=== PATIENT | male | born 1955 | race Caucasian/White ===

== ENCOUNTER 2024-11-08 06:15 | Day surgery (SDC) | payer MEDICARE, MEDICAID, SELFPAY ==
--- NOTE | 2024-11-07 07:00 | EKG_ITS ---
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
[2024-11-07 07:46] VITALS: BMI 25.5
[2024-11-07 09:52] LABS: Basophils % (Auto) 1 % (0-2.5); Eosinophils # (Auto) 0.1 Thou/mm3 (0.0-0.5); Eosinophils % (Auto) 2 % (0-10); Hematocrit 47.1 % (41.0-53.0); Hemoglobin 15.7 g/dL (13.5-16.0); Immature Granulocytes % (Auto) 1 % (0-0); Immature Granulocytes Auto 0.03 Thou/mm3 (0.00-0.00); Lymphocytes % (Auto) 17 % (10-50); Mean Corpuscular HGB Conc 33.3 g/dl (31.0-37.0); Mean Corpuscular Hemoglobin 30.5 pg (25.0-35.0); Mean Corpuscular Volume 92 fL (80-100); Monocytes # (Auto) 0.8 Thou/mm3 (0.0-0.8); Monocytes % (Auto) 13 % (0-12); Neutrophils # (Auto) 4.1 Thou/mm3 (1.8-7.7); Neutrophils % (Auto) 67 % (37-80); Nucleated Red Blood Cell % 0 /100 WBC (0); Platelet Count 181 Thou/mm3 (140-440); RDW Standard Deviation 41.5 fL (35.1-43.9); Red Blood Count 5.14 Miln/mm3 (4.50-5.90); White Blood Count 6.1 Thou/mm3 (3.8-10.6)
[2024-11-07 10:04] LABS: Alanine Aminotransferase 40 U/L (10-49); Albumin, Serum 4.9 gm/dL (3.4-4.8); Albumin/Globulin Ratio 1.9 (1.2-2.2); Alkaline Phosphatase 41 U/L (46-116); Anion Gap 8 (7-16); Aspartate Amino Transferase 32 U/L (0-34); BUN/Creatinine Ratio 14 Ratio (12-20); Bilirubin,Total 0.6 mg/dL (0.3-1.2); Blood Urea Nitrogen 24 mg/dL (9-23); Calcium 9.9 mg/dL (8.3-10.6); Calcium (Corrected) 9.9 mg/dL (8.5-10.1); Carbon Dioxide 25.7 mMol/L (20.0-31.0); Chloride 104 mMol/L (98-107); Creatinine (Component) 1.7 mg/dL (0.6-1.3); Estimated Creatinine Clearance 43.7 mL/min (>60); Globulin 2.6 gm/dL (2.3-3.5); Glucose 103 mg/dL (74-106); Osmolality,Calculated 279 (275-295); Potassium 4.5 mMol/L (3.4-5.1); Sodium 138 mMol/L (136-145); Total Protein 7.5 gm/dL (5.7-8.2); eGFR 43 See Note
[2024-11-08] VITALS (8 sets, daily range): BP systolic 112–139; BP diastolic 65–87; PULSE 77–108; RESP 13–20; TEMP 36.4–37.2; O2SAT 95–99; BMI 24.8
[2024-11-08] MEDS: RINGERS LACTATED 1000 ML 1,000 ML 20 ML IV (07:00)
[2024-11-08] MEDS: SCOPOLAMINE 1 MG TDSY TOP (07:56)
--- NOTE | 2024-11-08 09:48 | SUR.PHASEI ---
0948: Pt. AAOx4, vitals stable, breathing unlabored, no complaint of pain or nausea, dressing to right side CDI, no active bleed noted, report received from William BEARD and MD Segovia.
--- NOTE | 2024-11-08 10:01 | PD.SUROPNT ---
Date of Procedure 11/08/24 Pre Op Diagnosis Large right flank soft tissue mass Post Op Diagnosis Large subfascial soft tissue mass of right flank Procedure Excision of subfascial soft tissue mass from right flank Findings An approximately 10 cm diameter subfascial soft tissue mass of right flank Procedure Description Patient brought into the operating room in supine position. After administration of general endotracheal anesthesia, patient was placed in left lateral decubitus position. The right flank was prepped and draped in standard surgical manner. After administration of local anesthesia an approximately 12 cm elliptical incision was made and dissection was deepened into soft tissue. The mass was palpated and noted to be subfascial. The fascia was divided. The underlying mass was circumferentially dissected out surrounding tissue and underlying muscle. The mass was measuring to be approximately 10 cm diameter, lipomatous in nature. Once the mass was removed the area was copiously and thoroughly washed and irrigated and hemostasis achieved using electrocautery. The fascia reapproximated with interrupted sutures using 2-0 Vicryl. Subcutaneous tissue closed with interrupted sutures using 2-0 Vicryl and the incision was closed with 4-0 Monocryl in subcuticular fashion. Dermabond and sterile dressings applied. Patient tolerated procedure well. He was placed in supine position and extubated. He was breathing spontaneously and without difficulty and was transferred to postanesthesia care in stable condition. Instruments, needles and sponge counts were reported to be correct x 2. Anesthesia GETA and local Pathology / specimen Other (Right flank soft tissue mass) Estimated Blood Loss 5 Condition Stable Disposition PACU Surgeon Betty Crespo MD Surgical Staff Operation Date: 11/08/24 08:45 Case Staff Anesthesiologist: Eliseo Segovia
[2024-11-08] MEDS: HYDROcodone/APAP 5/325 TABLET 1 TAB PO (10:36)
--- NOTE | 2024-11-08 10:45 | SUR.PHASEII ---
1045: Pt. AAOx4, vitals stable, breathing unlabored, no complaint of pain or nausea, dressing to right flank CDI, no active bleed noted, Pt. tolerated sips of water well, pt. ambulated to wheelchair with steady gait and no assist, no complications. Gave discharge instructions to the pt. and his ride, both verbalized understanding and had no further questions. Pt. left with all personal belongings.
== END 2024-11-08 10:45 | disposition home or self-care (01) ==
PROVIDERS: Anesthesiology; PCP Family Medicine; Referring Provider Surgery; Visit Provider Surgery
PROC: (CPT 21933; principal; 2024-11-08 08:30)
DX: D17.1 Benign lipomatous neoplasm of skin and subcutaneous tissue of trunk (principal); Z01.810 Encounter for preprocedural cardiovascular examination
CPT/HCPCS: 21933; 36415; 80053; 85025; 93005; A4217; A4649; J0690; J1100; J1885; J2405; J2704; J3010; J3490; J7120; A9270

== ENCOUNTER → 2024-12-08 | Outpatient (CLI) | payer MEDICARE, MEDICAID, SELFPAY ==
[2024-12-08 12:37] LABS: Prostate Specific Antigen 9.19 ng/mL (0-4.00)
== END | disposition home or self-care (01) ==
LOC: COPL 11:08
PROVIDERS: PCP Physician Assistant; Referring Provider Surgery; Visit Provider Surgery
DX: N40.1 Benign prostatic hyperplasia with lower urinary tract symptoms (principal)
CPT/HCPCS: 36415; 84153

== ENCOUNTER → 2024-12-19 | Outpatient (CLI) | payer MEDICARE, MEDICAID, SELFPAY ==
--- NOTE | 2024-12-19 11:30 | XR_ITS ---
Examination: Testicular sonography complete TECHNIQUE: Grayscale sonographic images testes, assessment arterial inflow venous outflow Doppler spectral analysis carful analysis Exam date and time: December 19, 2024 1131 hours INDICATIONS: Palpable lump on clinical examination right testicle one month ago FINDINGS: Right testis 4.9 x 2.3 x 3.4 cm Epididymis 7.4 cm with septated right epididymal cyst 10.7 cm Arterial flow testicle. No testicular mass Left testis 4.4 x 2.2 x 2.5 cm Epididymis 12 mm Arterial flow testicle. No testicular mass Bilateral mild microlithiasis IMPRESSION: Large right epididymal cyst 10.7 x 4.5 x 6.7 cm Testicular microlithiasis
== END | disposition home or self-care (01) ==
PROVIDERS: PCP Physician Assistant; Referring Provider Surgery; Visit Provider Surgery
DX: N50.3 Cyst of epididymis (principal); N50.89 Other specified disorders of the male genital organs
CPT/HCPCS: 76870

== ENCOUNTER 2025-02-21 06:00 | Day surgery (SDC) | payer MEDICARE, MEDICAID, SELFPAY ==
[2025-02-20 06:54] VITALS: BMI 25.7
[2025-02-20 07:26] LABS: Collection Type, Urine Clean Catch; RBC,Urine 0 /hpf (0-3); Squamous Epithelial Cell,Urine 0 /hpf (0-5)
[2025-02-20 08:03] LABS: Basophils % (Auto) 1 % (0-2.5); Eosinophils # (Auto) 0.1 Thou/mm3 (0.0-0.5); Eosinophils % (Auto) 3 % (0-10); Hematocrit 40.9 % (41.0-53.0); Hemoglobin 13.9 g/dL (13.5-16.0); Immature Granulocytes % (Auto) 0 % (0-0); Immature Granulocytes Auto 0.01 Thou/mm3 (0.00-0.00); Lymphocytes % (Auto) 19 % (10-50); Mean Corpuscular Hemoglobin 30.5 pg (25.0-35.0); Mean Corpuscular Volume 90 fL (80-100); Monocytes # (Auto) 0.6 Thou/mm3 (0.0-0.8); Monocytes % (Auto) 12 % (0-12); Neutrophils # (Auto) 3.3 Thou/mm3 (1.8-7.7); Neutrophils % (Auto) 65 % (37-80); Nucleated Red Blood Cell % 0 /100 WBC (0); Platelet Count 175 Thou/mm3 (140-440); RDW Standard Deviation 43.2 fL (35.1-43.9); Red Blood Count 4.55 Miln/mm3 (4.50-5.90); White Blood Count 5.1 Thou/mm3 (3.8-10.6)
[2025-02-20 08:11] LABS: Bilirubin,Urine Negative (Negative); Blood,Urine Negative (Negative); Clarity,Urine Clear (Clear/Hazy); Color,Urine Lt-Yellow (Lt Yel-Yel); Glucose, Urine Negative (Negative); Ketones,Urine Negative (Negative); Leukocyte Esterase,Urine Negative (Negative); Nitrite,Urine Negative (Negative); PH,Urine 5.5 (5.0-7.0); Protein,Urine Negative (Neg - Trace); Specific Gravity,Urine 1.011 (1.001-1.035); Urobilinogen,Urine Negative mg/dL (0.0-1.0); WBC,Urine 1 /hpf (0-5)
[2025-02-20 08:11] LABS: Alanine Aminotransferase 19 U/L (10-49); Albumin, Serum 4.6 gm/dL (3.4-4.8); Albumin/Globulin Ratio 1.5 (1.2-2.2); Alkaline Phosphatase 49 U/L (46-116); Anion Gap 8 (7-16); Aspartate Amino Transferase 21 U/L (0-34); BUN/Creatinine Ratio 11 Ratio (12-20); Bilirubin,Total 0.7 mg/dL (0.3-1.2); Blood Urea Nitrogen 28 mg/dL (9-23); Calcium 9.3 mg/dL (8.3-10.6); Calcium (Corrected) 9.3 mg/dL (8.5-10.1); Carbon Dioxide 23.1 mMol/L (20.0-31.0); Chloride 111 mMol/L (98-107); Creatinine (Component) 2.5 mg/dL (0.6-1.3); Estimated Creatinine Clearance 28.9 mL/min (>60); Glucose 98 mg/dL (74-106); Osmolality,Calculated 288 (275-295); Sodium 142 mMol/L (136-145); Total Protein 7.6 gm/dL (5.7-8.2); eGFR 27 See Note
--- NOTE | 2025-02-20 13:45 | SUR.PREOP ---
Pt notified to come in at 0630 tomorrow for procedure.
--- NOTE | 2025-02-20 17:24 | ESHP_ITS ---
RE: MACARIO SANTIAGO : 1955 DATE OF ADMISSION: 02/21/2025 HISTORY OF PRESENT ILLNESS: The patient is an elderly gentleman with history of prostatism with elevated PSA of 9.19. The patient has some urinary urgency and prostatism. PAST SURGICAL HISTORY: Thyroid operation. He had umbilical hernia repair, eye operation and back operation. SOCIAL HISTORY: He has one child. PAST MEDICAL HISTORY: He has a history of high blood pressure. No history of diabetes mellitus. HOME MEDICATIONS: He takes lisinopril and statin medication and tamsulosin once a day. ALLERGIES: NONE KNOWN. PHYSICAL EXAMINATION: HEENT: Normal. NECK: Supple. LUNGS: Clear. CARDIOVASCULAR: Heart sounds are normal. ABDOMEN: Abdomen is soft without any organomegaly. No guarding. No rigidity. EXTREMITIES: Normal. GENITOURINARY: Phallus is normal. There is a right-sided scrotal spermatocele 2 to 3 inches in size. The patient's PSA has been up, 9.19. The patient has a right flank lipoma, 6 inches in size and left flank lipoma. He has aright scrotal swelling, 2 to 3 cm. RECTAL: Rectal examination reveals moderately enlarged smooth prostate. IMPRESSION: 1. Prostatism. 2. Prostatic obstruction. 3. Elevated PSA of 9.19. 4. 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 PLAN: Cystoscopy and transrectal prostatic ultrasound with ultrasound-guided prostatic needle biopsy. Planned procedure, risks and complications have been discussed with the patient. The patient has understood them and agreed to proceed. DT: 14:59:25 TT: 17:22:00 Ref: [id number] - TID: [id number]
[2025-02-21 06:45] VITALS: BP 156/93; PULSE 81; RESP 18; TEMP 37.4; O2SAT 99; BMI 25.9
[2025-02-21] MEDS: SODIUM CHLORIDE 0.9% 500 ML 500 ML 20 ML IV (06:53)
--- NOTE | 2025-02-21 08:05 | CHAP ---
Visited with patient and had prayer.
[2025-02-21 09:02] VITALS: BP 136/85; PULSE 76; RESP 16; TEMP 36.5; O2SAT 96
[2025-02-21 09:07] VITALS: BP 136/78; PULSE 73; RESP 20; O2SAT 98
[2025-02-21] MEDS: KETOROLAC INJ 30 MG/ML VIAL IVP (09:10)
[2025-02-21 09:12] VITALS: BP 131/79; PULSE 71; RESP 20; O2SAT 99
[2025-02-21 09:17] VITALS: BP 126/80; PULSE 65; RESP 20; O2SAT 96
[2025-02-21 09:32] VITALS: BP 136/82; PULSE 69; RESP 20; TEMP 37.2; O2SAT 99
--- NOTE | 2025-02-21 09:35 | ESOP_ITS ---
RE: MACARIO SANTIAGO : 1955 DATE OF OPERATION: 02/21/2025 PREOPERATIVE DIAGNOSES: Prostatism, prostatic obstruction, elevated prostate- specific antigen of 9.19, and right-sided scrotal hydrocele. POSTOPERATIVE DIAGNOSES: Prostatism, prostatic obstruction, elevated prostate- specific antigen of 9.19, and right-sided scrotal hydrocele. PROCEDURES PERFORMED: Cystoscopy, urethral dilatation, and transrectal prostatic ultrasound with ultrasound-guided prostatic needle biopsy. ANESTHESIA: Monitored anesthesia by Dr. Callaway. INDICATION: The patient is a 69-year-old gentleman who was referred to me with a history of prostatism, urgency, frequency, and elevated PSA of 9.19. The patient's rectal examination revealed a moderately large prostate without any hard nodules. The patient does have a right-sided scrotal hydrocele with some swelling below the right testicle, some sort of soft tissue in the right-sided scrotum with the hydrocele. The patient was now scheduled for cystoscopy and transrectal prostatic ultrasound with ultrasound-guided prostatic needle biopsy. Planned procedure, risks, and complications have been discussed with the patient. The patient understood them and agreed to proceed. DESCRIPTION OF PROCEDURE: After the patient was brought to the operating table under adequate monitored anesthesia by Dr. Callaway, he was placed in dorsal lithotomy position. Parts were prepped and draped in the usual fashion. Cystoscopy was then carried out in a standard fashion, which revealed adequate urethral meatus, normal-appearing urethra. Prostatic urethra revealed a moderately large prostate with bilobed prostate. Residual urine was about 800 mL, yellow and clear and was sent for culture and sensitivity examination. Bladder appeared to be hypotonic and flabby without any intravesical stones or tumors. Ureteral orifices were found to be normal in position and appearance. Scope was withdrawn. The urethra was dilated. The patient was then turned in left lateral position. Transrectal prostatic ultrasound was carried out. Biopsies were obtained from both lobes using ultrasound guidance. Prostatic volume was measured at 51.9 cubic cm. The patient tolerated the entire procedure well and left the room in good condition. PLAN: We will wait for the biopsy report. DT: 09:13:05 TT: 09:34:00 Ref: [id number] - TID: [id number]
--- NOTE | 2025-02-21 09:42 | SUR.PHASEII ---
0902: pt arrived to PACU via [facility] awake, alert, able to follow commands, breathing unlabored, report from Yoel BEARD and Dr Callaway 0915: pt able to tolerate oral fluids without difficulty swallowing or n/v 0942: pt awake, alert, able to follow commands, breathing unlabored, VS stable, pain improved and tolerable per pt, discharge instructions given with sister present, all questions answered, pt discharged via wheelchair with all belongings and copies of discharge paperwork.
== END 2025-02-21 09:42 | disposition home or self-care (01) ==
PROVIDERS: Anesthesiology; PCP Family Medicine; Referring Provider Surgery; Visit Provider Surgery
PROC: 0TJB8ZZ Inspection of Bladder, Via Natural or Artificial Opening Endoscopic (ICD-10-PCS; CPT 52000; principal; 2025-02-21 08:30)
DX: N40.1 Benign prostatic hyperplasia with lower urinary tract symptoms (principal); N43.3 Hydrocele, unspecified; R97.20 Elevated prostate specific antigen [PSA]; R35.0 Frequency of micturition
CPT/HCPCS: 52281; 55700; 36415; 80053; 81001; 85025; 87086; 96372; 99283; A4217; A4314; A4649; J0694; J1885; J2250; J2270; J2704; J3010; J7040

== ENCOUNTER 2025-02-21 16:50 | Emergency (ER) | payer MEDICARE, MEDICAID, SELFPAY ==
[2025-02-21 16:51] VITALS: BMI 25.0
[2025-02-21 17:12] VITALS: BP 133/76; PULSE 78; RESP 18; TEMP 37; O2SAT 98; BMI 25.4
--- NOTE | 2025-02-21 17:55 | PD.EDRME ---
Rapid Medical Screening Exam RME Arrival date/time: 02/21/25 16:50 Chief Complaint: General Adult/Misc Complain Time Seen by Provider: 02/21/25 17:27 Vital signs: Vital Signs Temperature 98.6 F 02/21/25 17:12 Pulse Rate 78 02/21/25 17:12 Respiratory Rate 18 02/21/25 17:12 Blood Pressure 133/76 H 02/21/25 17:12 Pulse Oximetry (%) 98 02/21/25 17:12 Oxygen Delivery Method Room Air 02/21/25 17:12 Vital signs reviewed by provider: Yes RME Narrative: 69-year-old male patient presents to the ED with a complaint of inability to urinate for the past 7-1/2 hours. This morning he underwent a prostate biopsy and was told if he had not urinated in 6 hours that he needed to be seen. Discussed case with Dr. Avila who would like the patient to have a Vora catheter inserted with a leg bag. I have greeted and performed a focused initial assessment of this patient. A comprehensive ED assessment and evaluation of the patient, analysis of all test results, and completion of the medical decision making process will be conducted by additional ED providers.
[2025-02-21] MEDS: KETOROLAC INJ 60 MG/2 ML VIAL 30 MG IM (21:16)
[2025-02-21] MEDS: MORPHINE SULF INJ 10 MG/ML VIAL 5 MG IM (21:16)
[2025-02-21 22:24] VITALS: BP 124/82; PULSE 78
--- NOTE | 2025-05-08 16:33 | PD.EDADULT ---
ED General RME/HPI General Chief complaint: General Adult/Misc Complain Stated complaint: HAS NOT VOIDED IN 7 HRS, PROSTATE BIOSPY THIS AM Time Seen by Provider: 02/21/25 17:40 Arrival date/time: 02/21/25 16:50 RME / HPI RME / HPI narrative: 69-year-old male patient presents to the ED with a complaint of inability to urinate for the past 7-1/2 hours. This morning he underwent a prostate biopsy and was told if he had not urinated in 6 hours that he needed to be seen. Discussed case with Dr. Avila who would like the patient to have a Vora catheter inserted with a leg bag. I have greeted and performed a focused initial assessment of this patient. A comprehensive ED assessment and evaluation of the patient, analysis of all test results, and completion of the medical decision making process will be conducted by additional ED providers. Related Data Home Medications ?Medication ?Instructions ?Recorded ?Confirmed tamsulosin 0.4 mg capsule (Flomax) 0.4 mg PO BID ##0 09/20/17 05/02/25 finasteride 5 mg tablet 5 mg PO DAILY 02/20/25 05/02/25 bethanechol chloride 25 mg tablet 25 mg PO TID 05/02/25 05/02/25 Previous Rx's ?Medication ?Instructions ?Recorded nitrofurantoin macrocrystal 100 mg 100 mg PO BID 5 days #10 caps 05/04/25 capsule Allergies Allergy/AdvReac Type Severity Reaction Status Date / Time No Known Allergies Allergy Verified 03/09/25 10:50 Review of Systems Review of Systems Systems Reviewed: All systems reviewed, normal except as documented Past Medical History Past Medical History NEUROLOGIC: Negative Neurological Disorders or Seizures CARDIAC: Positive Cardiac Disorders, Hypercholesterolemia, Hypertension and Hypotension; Negative Congestive Heart Failure RESPIRATORY: Negative Chronic Obstructive Pulmonary Disease (COPD) GASTROINTESTINAL: Negative Gastrointestinal Disorders or Hepatitis GENITOURINARY: Positive Genitourinary Disorders (left kidney cyst/mass) and Benign Prostatic Hyperplasia; Negative Renal Disease MUSCULOSKELETAL: Positive Musculoskeletal Disorders, Degenerative Disk Disease and Fractures ENT: Positive Cataracts and Retinal Detachment ENDOCRINE: Negative Endocrine Disorders, Diabetes Mellitus Type 1 or Diabetes Mellitus Type 2 HEMATOLOGIC: Negative Blood Disorders OTHER HISTORY: Positive Hospitalization, Shingles and Measles; Negative Autoimmune Disease, Blood Transfusions, Blood Transfusion Reaction, Anesthesia Reactions or Cancer Family History FAMILY HISTORY: Positive Family Surgery; Negative Family Psychiatric Problems, Family Respiratory Disorders, Family Cardiac Disorders, Family Gastrointestinal Problems, Family Cancer or Family Anesthesia Reaction Surgical History SURGICAL: Positive Thyroidectomy, Eye Surgery and Transurethral Resection Social History SMOKING STATUS: Never smoker ED Exam Narrative Physical exam: Alert and oriented, 69-year-old male, moderate acute pain distress secondary to urinary retention. Vital signs blood pressure 133/76, pulse 78, respirations 18 and nonlabored, temp 98.6, O2 sat 98% on room air. Lungs are clear, cardiovascular regular rate and rhythm without murmurs, abdomen is soft with moderate suprapubic and lower pelvic tenderness. Course Course Course Narrative: Vora inserted with immediate urinary output of 600 milliliters of red/brown urine. Patient feels significant relief with drainage of his bladder. Patient was given Toradol 30 mg IM and morphine 5 mg IM. Verbal order for urinalysis however urinalysis was not obtained prior to discharge. Quality Measures none Orders Category Date Time Status Vora to Leg Bag Routine Care 02/21/25 17:58 Ordered Ketorolac Inj [Toradol Inj] Med 02/21/25 21:05 Discontinued 30 mg IM X1 ONE Morphine Inj Med 02/21/25 21:05 Discontinued 5 mg IM X1 ONE Vital Signs Vital signs: Vital Signs Temperature 98.6 F 02/21/25 17:12 Pulse Rate 78 02/21/25 17:12 Respiratory Rate 18 02/21/25 17:12 Blood Pressure 133/76 H 02/21/25 17:12 Pulse Oximetry (%) 98 02/21/25 17:12 Oxygen Delivery Method Room Air 02/21/25 17:12 Discharge Plan Plan Patient Disposition: HOME (Self Care) Discharge Disposition comment: Stable and improved Prescriptions/Referrals Prescriptions/Med Rec: No Action tamsulosin [Flomax] 0.4 MG capsule,extended release 24hr 0.4 mg PO BID Qty: 0 finasteride 5 mg tablet 5 mg PO DAILY Patient Comments: TAKE 1 TABLET BY MOUTH DAILY bethanechol chloride 25 mg tablet 25 mg PO TID Patient Comments: Pt wants to stop taking nitrofurantoin macrocrystal 100 mg capsule 100 mg PO BID 5 Days Qty: 10 0RF Rx Instructions: must administer with a meal/food Referrals: Souleymane Gan PA-C [Primary Care Provider] - In 1 week Problem List Clinical Impression: Acute urinary retention Patient/Caregiver Discharge Instructions Other Activity Instructions:: Keep the catheter in place until you are seen by your urologist. Education Materials: ED Urinary Retention, Male Additional Instructions: Follow-up with your urologist or primary care physician in 24 to 48 hours. Return to the ED for any new or worsening symptoms. Print Language: Pashto Stand Alone Forms: Sridevi Award Info., Patient Portal Info Letter PA/MARIA T Supervising Physician PA/MARIA T Supervising Physician: Dr Avila [facility] Narrative [facility] hospital course: 69-year-old male patient presents to the ED with a complaint of inability to urinate for the past 7-1/2 hours. This morning he underwent a prostate biopsy and was told if he had not urinated in 6 hours that he needed to be seen. Discussed case with Dr. Avila who would like the patient to have a Vora catheter inserted with a leg bag. Alert and oriented, 69-year-old male, moderate acute pain distress secondary to urinary retention. Vital signs blood pressure 133/76, pulse 78, respirations 18 and nonlabored, temp 98.6, O2 sat 98% on room air. Lungs are clear, cardiovascular regular rate and rhythm without murmurs, abdomen is soft with moderate suprapubic and lower pelvic tenderness. Vora inserted with immediate urinary output of 600 milliliters of red/brown urine. Patient feels significant relief with drainage of his bladder. Patient was given Toradol 30 mg IM and morphine 5 mg IM. Verbal order for urinalysis however urinalysis was not obtained prior to discharge. Procedures done or offered: Vora catheter inserted with leg bag. Clinical Information Provided by patient Medical Records Reviewed [facility] Meds/Rx Considered, not Ordered None Labs/Rad/Tests considered, not Ordered None Chronic Illness/Social Conditions which may negatively complicate care or outcome(s)-explain: other (BPH) EKG EKG not done Lab Interpretation Labs: none Imaging Imaging interpretation: none Medication Administration(s) Medication Administration History Discontinued Medications Ketorolac Tromethamine (Ketorolac Inj 60 Mg/2 Ml Vial) 30 mg IM X1 ONE Stop: 02/21/25 21:06 Last Admin: 02/21/25 21:16 Dose: 30 mg Documented By: OA Morphine Sulfate (Morphine Sulf Inj 10 Mg/Ml Vial) 5 mg IM X1 ONE Stop: 02/21/25 21:06 Last Admin: 02/21/25 21:16 Dose: 5 mg Documented By: OA Toradol 30 mg IM and morphine 5 mg IM. Diagnosis Differential diagnosis: Acute urinary retention, UTI, pyelonephritis Most likely dx, and/or detailed dx discussion: Acute urinary retention Dispositon Disposition: Discharge Home Disposition comments: Stable and improved
== END 2025-02-21 22:24 | disposition home or self-care (01) ==
PROVIDERS: Emergency Provider Emergency Medicine; PCP Physician Assistant
DX: N40.1 Benign prostatic hyperplasia with lower urinary tract symptoms (principal); R33.8 Other retention of urine
CPT/HCPCS: 51702; 96372; 99283; J1885; J2270

== ENCOUNTER 2025-03-09 10:47 | Emergency (ER) | payer MEDICARE, MEDICAID, SELFPAY ==
[2025-03-09 10:48] VITALS: BMI 25.7
[2025-03-09 11:07] VITALS: BP 100/64; PULSE 95; RESP 19; TEMP 36.5; O2SAT 94
--- NOTE | 2025-03-09 11:17 | PD.EDRME ---
Rapid Medical Screening Exam RME Arrival date/time: 03/09/25 10:47 69-year-old male with a history of a prostate biopsy that was completed on 02/21/2025 presents to the emergency room with a chief complaint of urinary retention x 3 days, and abdominal pain. I have greeted and performed a focused initial assessment of this patient. A comprehensive ED assessment and evaluation of the patient, analysis of all test results, and completion of the medical decision making process will be conducted by additional ED providers. Chief Complaint: Urogenital-Male Vital signs: Vital Signs Temperature 97.7 F 03/09/25 11:07 Pulse Rate 95 03/09/25 11:07 Respiratory Rate 19 03/09/25 11:07 Blood Pressure 100/64 03/09/25 11:07 Pulse Oximetry (%) 94 L 03/09/25 11:07 Oxygen Delivery Method Room Air 03/09/25 11:07 Vital signs reviewed by provider: Yes
[2025-03-09] MEDS: HYDROcodone/APAP 5/325 TABLET 1 TAB PO (11:38)
[2025-03-09 11:55] LABS: Basophils % (Auto) 0 % (0-2.5); Eosinophils % (Auto) 0 % (0-10); Hematocrit 39.5 % (41.0-53.0); Hemoglobin 13.7 g/dL (13.5-16.0); Immature Granulocytes % (Auto) 1 % (0-0); Immature Granulocytes Auto 0.15 Thou/mm3 (0.00-0.00); Lymphocytes # (Auto) 0.7 Thou/mm3 (1.0-4.8); Lymphocytes % (Auto) 4 % (10-50); Mean Corpuscular HGB Conc 34.7 g/dl (31.0-37.0); Mean Corpuscular Hemoglobin 30.6 pg (25.0-35.0); Mean Corpuscular Volume 88 fL (80-100); Monocytes # (Auto) 2.3 Thou/mm3 (0.0-0.8); Monocytes % (Auto) 12 % (0-12); Neutrophils # (Auto) 15.4 Thou/mm3 (1.8-7.7); Neutrophils % (Auto) 83 % (37-80); Nucleated Red Blood Cell % 0 /100 WBC (0); Platelet Count 220 Thou/mm3 (140-440); RDW Standard Deviation 40.8 fL (35.1-43.9); Red Blood Count 4.47 Miln/mm3 (4.50-5.90); White Blood Count 18.5 Thou/mm3 (3.8-10.6)
[2025-03-09 12:09] LABS: Partial Thromboplastin Time 32.3 Seconds (22.0-36.0); Prothrombin Time 10.9 Seconds (9.0-12.2)
[2025-03-09 12:14] LABS: Alanine Aminotransferase 21 U/L (10-49); Albumin, Serum 4.7 gm/dL (3.4-4.8); Albumin/Globulin Ratio 1.5 (1.2-2.2); Alkaline Phosphatase 67 U/L (46-116); Anion Gap 12 (7-16); Aspartate Amino Transferase 36 U/L (0-34); BUN/Creatinine Ratio 21 Ratio (12-20); Bilirubin,Total 0.6 mg/dL (0.3-1.2); Blood Urea Nitrogen 55 mg/dL (9-23); Calcium 9.8 mg/dL (8.3-10.6); Calcium (Corrected) 9.8 mg/dL (8.5-10.1); Chloride 101 mMol/L (98-107); Creatinine (Component) 2.6 mg/dL (0.6-1.3); Estimated Creatinine Clearance 28.6 mL/min (>60); Globulin 3.1 gm/dL (2.3-3.5); Glucose 131 mg/dL (74-106); Osmolality,Calculated 287 (275-295); Potassium 4.9 mMol/L (3.4-5.1); Sodium 135 mMol/L (136-145); Total Protein 7.8 gm/dL (5.7-8.2); eGFR 26 See Note
[2025-03-09] MEDS: LIDOCAINE JELLY 2% (Urojet) 10 ML TUBE TOP (12:23)
--- NOTE | 2025-03-09 12:26 | PC.NURSE ---
NAVARRO CATH INSERTED. 1100ML OUTPUT NOTED. INFORMED PROVIDER. RELIEF OF PAIN AFTER BLADDER WAS DRAINED.
[2025-03-09 12:32] LABS: Collection Type, Urine Clean Catch
[2025-03-09 12:39] LABS: Bacteria,Urine 2+; Bilirubin,Urine Negative (Negative); Blood,Urine 3+ (Negative); Glucose, Urine Negative (Negative); Ketones,Urine Negative (Negative); Leukocyte Esterase,Urine Positive (Negative); Nitrite,Urine Negative (Negative); Protein,Urine 1+ (Neg - Trace); RBC,Urine 26 /hpf (0-3); Specific Gravity,Urine 1.017 (1.001-1.035); Squamous Epithelial Cell,Urine 2 /hpf (0-5); Urobilinogen,Urine Negative mg/dL (0.0-1.0); WBC,Urine 2486 /hpf (0-5)
[2025-03-09 12:40] LABS: Clarity,Urine Cloudy (Clear/Hazy); Color,Urine Lt Yellow (Lt Yel-Yel)
--- NOTE | 2025-03-09 15:01 | EDNOTE_ITS ---
ED Male Genitalurinary RME/HPI General Chief complaint: Urogenital-Male Stated complaint: URINARY RETENTION Time Seen by Provider: 03/09/25 12:36 Arrival date/time: 03/09/25 10:47 RME / HPI RME / HPI Narrative: 69-year-old male with a history of a prostate biopsy that was completed on 02/21/2025 presents to the emergency room with a chief complaint of urinary retention x 3 days, and abdominal pain. Patient denies any fever. Denies any other complaints. Patient Vora catheter was removed last Thursday by his urologist. Related Data Home Medications ?Medication ?Instructions ?Recorded ?Confirmed tamsulosin 0.4 mg capsule (Flomax) 0.4 mg PO QDAY ##0 09/20/17 02/20/25 lisinopril 10 mg tablet 10 mg PO QDAY 02/14/2102/20 ciprofloxacin HCl 500 mg tablet 500 mg PO BID 02/20/25 02/20/25 (Cipro) finasteride 5 mg tablet 5 mg PO DAILY 02/20/2502/20 Previous Rx's ?Medication ?Instructions ?Recorded cefuroxime axetil 500 mg tablet 500 mg PO BID #14 tabs 03/09/25 Allergies Allergy/AdvReac Type Severity Reaction Status Date / Time No Known Allergies Allergy Verified 03/09/25 10:50 Review of Systems Review of Systems Narrative Review of Systems: Review of system reviewed and within normal limits except mentioned in HPI ED Exam Narrative Physical exam: VITAL SIGNS: Reviewed. GENERAL APPEARANCE: Alert and interactive, follows commands, no acute distress, HEAD AND FACE: Non-traumatic. ENT: PERRL, pink conjunctivitis, eyelid no trauma, Mucous membrane moist. NECK: Supple, nontender, no nuchal rigidity. CHEST: No tenderness, no crepitus, no paradoxical movement, no retractions. LUNGS: Clear, well ventilated, symmetric, no rales, no wheezing, no ronchi, no stridor, good breath sounds bilaterally. HEART: Regular rate, regular rhythm, no murmur, no gallops. ABDOMEN: Soft, positive bowel sounds, nondistended, no guarding, nontender, no rebound, no masses, RECTAL: Deferred. GENITAL: Deferred. NEUROLOGICAL: Gross motor function intact sensory function intact, Appropriate for age. MUSCULOSKELETAL: low back nontender, full range of motion. EXTREMITIES: Nontender, full range of motion. SKIN: Color pink, dry, no rash, no lacerations, no abrasions, no contusions. LYMPHATICS: Deferred. Course Quality Measures none Orders Category Date Time Status Vora [Urinary Catheter] QS Care 03/09/25 11:16 Active CBC Stat Lab 03/09/25 11:28 Completed CMP [Comprehensive Metabolic Panel] Stat Lab 03/09/25 11:28 Completed PT [Prothrombin Time with INR] Stat Lab 03/09/25 11:28 Completed PTT [Partial Thromboplastin Time] Stat Lab 03/09/25 11:28 Completed UA [Urinalysis] Stat Lab 03/09/25 12:26 Completed Urine Culture Stat Lab 03/09/25 12:26 Received HYDROcodone*/APAP 5/325 [[place] 5/325] Med 03/09/25 11:16 Discontinued 1 tab PO X1 ONE Lidocaine Jelly 2% Urojet [Xylocaine Jelly 2% Urojet] Med 03/09/25 11:16 Discontinued See Dose Instructions TOP X1 ONE cefTRIAXone [Rocephin] 1,000 mg Med 03/09/25 14:50 Discontinued Lidocaine 1% 20 ml [Xylocaine 1% 20 ML] 2.1 ml IM X1 Vital Signs Vital signs: Vital Signs Temperature 97.7 F 03/09/25 11:07 Pulse Rate 95 03/09/25 11:07 Respiratory Rate 19 03/09/25 11:07 Blood Pressure 100/64 03/09/25 11:07 Pulse Oximetry (%) 94 L 03/09/25 11:07 Oxygen Delivery Method Room Air 03/09/25 11:07 Urogenital - Male MDM Narrative MDM Narrative:: 69-year-old male with a history of a prostate biopsy that was completed on 02/21/2025 presents to the emergency room with a chief complaint of urinary retention x 3 days, and abdominal pain. Patient denies any fever. Denies any other complaints. Patient Vora catheter was removed last Thursday by his urologist. Patient's laboratories are significant for UTI. Patient's creatinine today was noted to be 2.6 BUN of 55. Patient creatinine was also 2.6 about 2 weeks ago. Vora catheter was inserted, draining more than 500 cc of clear urine. Patient was advised to drink a lot of fluids and asked for follow-up with PCP to repeat the creatinine in 1 week. Patient was given ceftriaxone IM Patient data External records reviewed:: None Clinical information provided by:: patient and family Social determinants that could affect healthcare access:: none Patient has the following chronic illnesses:: BPH How is presenting disease/condition affected by chronic disease/condition?: exacerbated by Evaluation data The following diagnostics were reviewed and interpreted by me:: lab results Lab and/or radiology exams considered but not ordered:: None Interpretation Summary: See results MDM Medications / Prescriptions Medications or Prescriptions considered but not ordered:: None Medication administrations:: Medication Administration History Discontinued Medications Hydrocodone Bitart/Acetaminophen (Hydrocodone/Apap 5/325 Tablet) 1 tab PO X1 ONE Stop: 03/09/25 11:17 Last Admin: 03/09/25 11:38 Dose: 1 tab Documented By: DO Ceftriaxone Sodium 1,000 mg/ (Lidocaine HCl 2.1 ml) 0 mg IM X1 ONE Stop: 03/09/25 14:51 Lidocaine HCl (Lidocaine Jelly 2% (Urojet) 10 Ml Tube) 0 ml TOP X1 ONE Stop: 03/09/25 11:17 Last Admin: 03/09/25 12:23 Dose: 10 ml Documented By: DO Comments: UNABLE TO SCAN Ceftriaxone IM [place] Consultations Consultation(s) initiated? (list below): No Diagnosis Urogenital Male Differential Diagnosis: urinary tract infection, prostatitis and acute retention of urine Most likely diagnosis given after review of the tests above:: UTI, acute urinary retention Admission Indicated Admission indicated?: not indicated Admission Request Was there a request for admission?: No Disposition Plan Disposition Plan: Discharge Discharge Attestation Discharge Attestation: The patient and all family members were given an opportunity to ask questions and understood the discharge instructions. Discharge instructions specifically effects, indications for sooner follow up or return to the emergency department, and the expected course of current diagnosis. Patient condition: Stable Discharge Plan Plan Patient Disposition: HOME (Self Care) Discharge Disposition comment: Stable Prescriptions/Referrals Prescriptions/Med Rec: New cefuroxime axetil 500 mg tablet 500 mg PO BID Qty: 14 0RF No Action lisinopril 10 mg tablet 10 mg PO QDAY tamsulosin [Flomax] 0.4 MG capsule,extended release 24hr 0.4 mg PO QDAY Qty: 0 finasteride 5 mg tablet 5 mg PO DAILY Patient Comments: TAKE 1 TABLET BY MOUTH DAILY ciprofloxacin HCl [Cipro] 500 mg tablet 500 mg PO BID Referrals: Maverick Negro MD [Primary Care Provider] - In 1 week Problem List Clinical Impression: Acute on chronic urinary retention, Urinary tract infection, CKD (chronic kidney disease) Patient/Caregiver Discharge Instructions Discharge Activity: activity as tolerated Education Materials: ED Vora Catheter, Care Additional Instructions: Thank you for the opportunity for serving you today. You are stable for discharged . You are advised to: Follow-up with your PCP in 1 to 2 days Return to ED for worsening of symptoms Increase oral fluids Take medication as prescribed Please ask your PCP to refer you to a tempering oven operator in 1 to 2 days Print Language: Lithuanian Stand Alone Forms: Sridevi Award Info., Patient Portal Info Letter PA/GASSER MACHINE OPERATOR Supervising Physician ARINA/MARIA T Supervising Physician: Dr combs
[2025-03-09] MEDS: cefTRIAXone 1,000 MG, LIDOCAINE 1% 20 ML 2.1 ML IM (15:07)
== END 2025-03-09 15:22 | disposition home or self-care (01) ==
PROVIDERS: Nurse Practitioner Family; Emergency Provider Emergency Medicine; PCP Surgery
DX: N40.1 Benign prostatic hyperplasia with lower urinary tract symptoms (principal); R33.8 Other retention of urine; N39.0 Urinary tract infection, site not specified; N18.9 Chronic kidney disease, unspecified
CPT/HCPCS: 51702; 36415; 80053; 81001; 85025; 85610; 85730; 87077; 87086; 87186; 96372; 99283; J0696; J3490; A9270

== ENCOUNTER 2025-03-11 12:07 | Inpatient (IN) | payer MEDICARE, MEDICAID, SELFPAY ==
[2025-03-11 12:17] VITALS: BP 124/66; PULSE 84; RESP 17; TEMP 36.8; O2SAT 95; BMI 25.7
--- NOTE | 2025-03-11 12:29 | PD.EDMALE ---
ED Male Genitalurinary RME/HPI General Chief complaint: Urogenital-Male Stated complaint: URINE RESISTANT TO ORAL ABX Time Seen by Provider: 03/11/25 12:23 Arrival date/time: 03/11/25 12:07 Limitations: no limitations RME / HPI RME / HPI Narrative: 69 year old male who underwent cystoscopy, urethral dilatation, and ultrasound-guided prostatic biopsy on 02/21/[address] Vazquez returns to the ED for antibiotics. Patient was evaluated here 2 days ago for urinary retention and had a alvarado catheter placed, draining 500cc of urine. Patient was given an injection of Ceftriaxone here and sent home with Cefuroxime. Today I reviewed patients urine culture sensitivities which grew pseudonomas and is resistant to all oral forms. Patient was called and asked to return for admission. While in the ED denies any systemic symptoms, no fevers, no chills, no abdominal pain. Related Data Home Medications ?Medication ?Instructions ?Recorded ?Confirmed tamsulosin 0.4 mg capsule (Flomax) 0.4 mg PO QDAY ##0 09/20/17 02/20/25 lisinopril 10 mg tablet 10 mg PO QDAY 02/14/21 02/20/25 ciprofloxacin HCl 500 mg tablet 500 mg PO BID 02/20/25 02/20/25 (Cipro) finasteride 5 mg tablet 5 mg PO DAILY 02/20/25 02/20/25 Previous Rx's ?Medication ?Instructions ?Recorded cefuroxime axetil 500 mg tablet 500 mg PO BID #14 tabs 03/09/25 Allergies Allergy/AdvReac Type Severity Reaction Status Date / Time No Known Allergies Allergy Verified 03/09/25 10:50 Review of Systems Review of Systems Systems Reviewed: All systems reviewed, normal except as documented Past Medical History Past Medical History CARDIAC: Positive Cardiac Disorders, Hypercholesterolemia (Diet control pt's chooice) and Hypertension GENITOURINARY: Positive Genitourinary Disorders and Benign Prostatic Hyperplasia MUSCULOSKELETAL: Positive Musculoskeletal Disorders, Degenerative Disk Disease and Fractures (left orbital) ENT: Positive Cataracts (Left) and Retinal Detachment (left eye) OTHER HISTORY: Positive Hospitalization (back surgery) and Measles Family History FAMILY HISTORY: Positive Family Surgery Surgical History SURGICAL: Positive Thyroidectomy (lobectomy) and Eye Surgery (left retina) Social History SMOKING STATUS: Never smoker ED Exam General Limitations: Present no limitations General appearance: Present alert and in no apparent distress Head Head exam: Present atraumatic, normocephalic and normal inspection Eye Eye exam: Present normal appearance, PERRL and EOMI ENT ENT exam: Present normal exam, normal oropharynx and mucous membranes moist Neck Neck exam: Present normal inspection, full ROM and trachea midline Chest Chest inspection: Present normal inspection and symmetric chest wall rise Respiratory Respiratory exam: Present normal lung sounds bilaterally Cardiovascular Cardiovascular exam: Present regular rate, normal rhythm and normal heart sounds Abdominal Exam Abdominal exam: Present soft and normal bowel sounds exam: Present other (Alvarado catheter in place ) Extremities Exam Extremities exam: Present normal inspection and full ROM Back Exam Back exam: Present normal inspection and full ROM Neurological Exam Neurological exam: Present alert, oriented X3 and CN II-XII intact Psychiatric Psychiatric exam: Present normal affect and normal mood Skin Skin exam: Present warm, dry, intact and normal color Course Quality Measures none Orders Category Date Time Status Insert IV NOW Care 03/11/25 12:23 Active BMP [Basic Metabolic Panel] Stat Lab 03/11/25 12:36 Completed CBC Stat Lab 03/11/25 12:36 Completed Vital Signs Vital signs: Vital Signs Temperature 98.2 F 03/11/25 12:17 Pulse Rate 84 03/11/25 12:17 Respiratory Rate 17 03/11/25 12:17 Blood Pressure 124/66 03/11/25 12:17 Pulse Oximetry (%) 95 03/11/25 12:17 Oxygen Delivery Method Room Air 03/11/25 12:17 Pulse ox is 95% on room air which is adequate. Urogenital - Male MDM Narrative MDM Narrative:: Gisela Burger am scribing for and in the presence of Dr. Barahona. Patient data External records reviewed:: [facility] previous records (I reviewed ED visit on 03/09/2025. I reviewed urine cultures from 03/09/2025 which grew pseudomonas. ) Clinical information provided by:: patient Social determinants that could affect healthcare access:: none Patient has the following chronic illnesses:: underwent cystoscopy, urethral dilatation, and ultrasound-guided prostatic biopsy on 02/21/[address] Vazquez How is presenting disease/condition affected by chronic disease/condition?: exacerbated by Evaluation data The following diagnostics were reviewed and interpreted by me:: lab results Lab and/or radiology exams considered but not ordered:: None Interpretation Summary: I reviewed urine culture from visit on 03/09/2025 which grew pseudomonas aeruginosa Medications / Prescriptions Medications or Prescriptions considered but not ordered:: None Medication administrations:: Medication Administration History Acetaminophen (Acetaminophen 325 Mg Tablet) 650 mg PO Q6H PRN PRN Reason: pain(1-3) and Fever >100.4 Stop: 04/10/25 12:52 Hydrocodone Bitart/Acetaminophen (Hydrocodone/Apap 5/325 Tablet) 1 tab PO Q4HR PRN PRN Reason: PAIN SCALE 4-10(Mod-Sev Stop: 03/16/25 12:52 Enoxaparin Sodium (Enoxaparin Sod Inj 40 Mg/0.4 Ml Syringe) 40 mg SC QDAY COUNT INCLUDES THE [facility] Stop: 03/26/25 08:59 Finasteride (Finasteride 5 Mg Tablet) 5 mg PO QDAY COUNT INCLUDES THE [facility] Stop: 04/11/25 08:59 Cefepime HCl 1 gm/ Sodium (Chloride) 50 mls @ 100 mls/hr IV Q12HR COUNT INCLUDES THE [facility] Stop: 03/18/25 12:57 Ondansetron HCl (Ondansetron Inj 2 Mg/Ml Inj 2 Ml) 4 mg IV Q6H PRN; Protocol PRN Reason: NAUSEA OR VOMITING Stop: 04/10/25 12:52 Tamsulosin HCl (Tamsulosin Hcl 0.4 Mg Capsule) 0.4 mg PO QDAY COUNT INCLUDES THE [facility] Stop: 04/11/25 08:59 Discontinued Medications Cefepime HCl 2 gm/ Sodium (Chloride) 50 mls @ 100 mls/hr IV Q12HR COUNT INCLUDES THE [facility] Stop: 03/18/25 12:57 Last Admin: 03/11/25 13:12 Dose: 100 mls/hr Documented By: YOVANI Lisinopril (Lisinopril 2.5 Mg Tablet) 10 mg PO QDAY COUNT INCLUDES THE [facility] Stop: 04/11/25 08:59 See above Consultations Consultation(s) initiated? (list below): Yes Consultation #1 (Physician, Specialty, Details): I spoke with hospitalist Dr. Sanchez regarding admission. Discussed patients PMHx, HPI, ED course, and lab results. The hospitalist agree to accept the patient for admission. Time: 12:45 Diagnosis Urogenital Male Differential Diagnosis: urinary tract infection, prostatitis and acute retention of urine Most likely diagnosis given after review of the tests above:: Chronic indwelling alvarado catheter Multiple abx resistance pseudomonas aeruginosa Admission Indicated Admission indicated?: indicated Admission Request Was there a request for admission?: Yes Admission Attestation Admission request attestation: Discussed case with [] from Hospitalist service regarding admission. Discussed patients ED course, exam findings, labs, and radiology results. The Hospitalist [agrees,declines] to accept the patient for admission. Disposition Plan Disposition Plan: Admit Discharge Plan Plan Patient Disposition: Admit Acute Care w/in Hospital Problem List Clinical Impression: Chronic indwelling Alvarado catheter, Pseudomonas aeruginosa infection, Resistance to multiple antibiotics
[2025-03-11 12:50] LABS: Basophils % (Auto) 0 % (0-2.5); Eosinophils # (Auto) 0.1 Thou/mm3 (0.0-0.5); Eosinophils % (Auto) 2 % (0-10); Hematocrit 35.5 % (41.0-53.0); Hemoglobin 12.4 g/dL (13.5-16.0); Immature Granulocytes % (Auto) 2 % (0-0); Immature Granulocytes Auto 0.14 Thou/mm3 (0.00-0.00); Lymphocytes # (Auto) 0.8 Thou/mm3 (1.0-4.8); Lymphocytes % (Auto) 10 % (10-50); Mean Corpuscular HGB Conc 34.9 g/dl (31.0-37.0); Mean Corpuscular Hemoglobin 30.5 pg (25.0-35.0); Mean Corpuscular Volume 87 fL (80-100); Monocytes # (Auto) 1.2 Thou/mm3 (0.0-0.8); Monocytes % (Auto) 15 % (0-12); Neutrophils # (Auto) 5.8 Thou/mm3 (1.8-7.7); Neutrophils % (Auto) 71 % (37-80); Nucleated Red Blood Cell % 0 /100 WBC (0); Platelet Count 229 Thou/mm3 (140-440); RDW Standard Deviation 40.5 fL (35.1-43.9); Red Blood Count 4.06 Miln/mm3 (4.50-5.90); White Blood Count 8.1 Thou/mm3 (3.8-10.6)
[2025-03-11 12:53] VITALS: RESP 98
--- NOTE | 2025-03-11 12:58 | ESHP_ITS ---
Documentation for date of: 03/11/25 HPI History of Present Illness Chief complaint: dysuria and urinary retention History of present illness: 69-year-old male with past medical history of BPH and hypertension was admitted to the hospital on 03/11/2025 after urine culture taken on 03/09/2025 the patient visited the ED came back positive for Pseudomonas resistant to p.o. antibiotics. Patient had come on 03/09/2025 due to abdominal pain, abdominal distention, dysuria, and urinary retention after he had his Vora taken out on 03/06/2025 by his urologist. Patient stated that he had a prostate biopsy on 02/21/2025 and had his Vora since then until 03/06/2025 when it was taken out by his urologist. He mentioned that after it was taken out he had small drops of urine when he tried to urinate, but it was experiencing a lot of burning sensation and abdominal distention which also made him to lose his appetite. Patient denied any fevers, chills, sweats, or chest pain. He mentions that these were his only symptoms and that since he came to the ED he has had relief in his abdominal distention and pain. ED course: Initially patient came today normotensive and afebrile. Initial labs were relevant for for SALOME (creatinine 1.8 baseline creatinine is 1.2). Urine culture on 03/09/2025 did grow Pseudomonas that was sensitive to cefepime. PMH: As above Social Hx: Patient denies any smoking, drinking, or any illicit drugs Surgical Hx: Hernia repair, back surgery, lipoma resection, cataracts Meds: Lisinopril 10 mg daily, finasteride 5 mg daily, and tamsulosin 0.4 mg daily Review of Systems Review of Systems Narrative Review of Systems: Constitutional: Denies sweats, Denies weight loss/gain, Denies fever, Denies chills. HEENT: Denies hearing loss, Denies ear pain, Denies postnasal drip, Denies double vision, Denies blurry vision. Respiratory: Denies shortness of breath, Denies cough, Denies wheezing. Cardiovascular: Denies chest pain, Denies palpitations, Denies sudden loss of consciousness. GI: Denies blood in stool, Denies constipation, Admits abdominal pain, Denies difficulty swallowing, Denies nausea or vomit. : Admtis urinary retention, Admits pain while urinating, Denies increased urinary frequency. MSK: Denies joint pain, Denies joint swelling, Denies numbness. Skin: Denies rash, Denies itching, Denies easy bruising. Neuro: Denies headaches, Denies dizziness, Denies seizures. Past Medical History Past Medical History CARDIAC: Positive Cardiac Disorders, Hypercholesterolemia (Diet control pt's chooice) and Hypertension GENITOURINARY: Positive Genitourinary Disorders and Benign Prostatic Hyperplasia MUSCULOSKELETAL: Positive Musculoskeletal Disorders, Degenerative Disk Disease and Fractures (left orbital) ENT: Positive Cataracts (Left) and Retinal Detachment (left eye) OTHER HISTORY: Positive Hospitalization (back surgery) and Measles Family History FAMILY HISTORY: Positive Family Surgery Surgical History SURGICAL: Positive Thyroidectomy (lobectomy) and Eye Surgery (left retina) Social History SMOKING STATUS: Never smoker Exam Vital Signs Temp Pulse Resp BP Pulse Ox O2 Del Method 98.2 F 84 17 124/66 95 Room Air 03/11/25 12:17 03/11/25 12:17 03/11/25 12:17 03/11/25 12:17 03/11/25 12:17 03/11/25 12:17 Narrative Exam General: A/O x3, no acute distress, well-nourished, well-developed Eyes: PERRL, EOMI. Anicteric, vision grossly intact. Ears: No ear pain, no ear discharge, Hearing grossly intact. Nose: No nasal discharge. Mouth/Throat: Moist mucous membranes, no redness, no lesions. Neck: Neck supple, non-tender, no cervical lymphadenopathy. Lungs: Clear LUIS F to auscultation and percussion, No accessory muscle use. Cardio: Normal S1/S2, regular rhythm, no murmurs, no JVD Abdomen: Soft, non-tender, no palpable masses, peristalsis present, no guarding or rebound. Extremities: Symmetrical, no significant deformities, no peripheral edema , non-tender, peripheral pulses presents. Skin: No rashes, no lesions, warm to touch. Neuro: No focal neurological deficits. motor and sensory intact. Psych: Cooperative, appropriate mood and effect. Results: Labs 03/12/25 06:31 03/12/25 06:31 Labs: Short CBC 03/11/25 Range/Units 12:36 WBC 8.1 D (3.8-10.6) Thou/mm3 Hgb 12.4 L (13.5-16.0) g/dL Hct 35.5 L (41.0-53.0) % Plt Count 229 (140-440) Thou/mm3 Quality Measures Quality Measures none Advance care planning discussed with:: patient and sibling Medications Home Medications and Allergies Home Medications ?Medication ?Instructions ?Recorded ?Confirmed ?Type tamsulosin 0.4 mg capsule (Flomax) 0.4 mg PO QDAY ##0 09/20/17 02/20/25 History lisinopril 10 mg tablet 10 mg PO QDAY 02/14/2102/20 History ciprofloxacin HCl 500 mg tablet 500 mg PO BID 02/20/25 02/20/25 History (Cipro) finasteride 5 mg tablet 5 mg PO DAILY 02/20/2502/20 History Allergies Allergy/AdvReac Type Severity Reaction Status Date / Time No Known Allergies Allergy Verified 03/09/25 10:50 Visit Medications Acetaminophen (Acetaminophen 325 Mg Tablet) 650 mg PO Q6H PRN PRN Reason: pain and Fever >100.4 Stop: 04/10/25 12:52 Hydrocodone Bitart/Acetaminophen (Hydrocodone/Apap 5/325 Tablet) 1 tab PO Q4HR PRN PRN Reason: PAIN SCALE 4-10(Mod-Sev Stop: 03/16/25 12:52 Enoxaparin Sodium (Enoxaparin Sod Inj 40 Mg/0.4 Ml Syringe) 40 mg SC QDAY [facility] Stop: 03/26/25 08:59 Finasteride (Finasteride 5 Mg Tablet) 5 mg PO QDAY [facility] Stop: 04/11/25 08:59 Lisinopril (Lisinopril 2.5 Mg Tablet) 10 mg PO QDAY [facility] Stop: 04/11/25 08:59 Ondansetron HCl (Ondansetron Inj 2 Mg/Ml Inj 2 Ml) 4 mg IV Q6H PRN; Protocol PRN Reason: NAUSEA OR VOMITING Stop: 04/10/25 12:52 Pharmacy Consult (Pharmacy To Dose Amikacin) 1 each IV QDAY [facility] Stop: 04/10/25 12:29 Tamsulosin HCl (Tamsulosin Hcl 0.4 Mg Capsule) 0.4 mg PO QDAY [facility] Stop: 06/03/25 08:59 Assessment & Plan Plan 69-year-old male with past medical history of BPH and hypertension was admitted to the hospital on 01/26/2025 due to complicated UTI, Pseudomonas aeruginosa. #Complicated UTI #Pseudomonas aeruginosa #Hx of BPH Patient was seen in the ER on 03/09/2025 due to dysuria with abdominal distention and urinary retention. Patient had Vora placed on 03/09/2025 which improved his urinary retention and his abdominal distention. Urine culture on 03/09/2025 did grow Pseudomonas aeruginosa which was sensitive to cefepime. Plan: Start cefepime 2 g twice daily (03/11/2025?) Input and output every shift Restarted tamsulosin 0.4 mg daily and finasteride 5 mg daily Patient will need a PICC line insertion by IR, order for Thursday ID consulted, appreciate recommendations #SALOME Patient creatinine 1.8 today from 2.6 on 03/09/2025 Most likely secondary to obstructive uropathy Base creatinine 1.2 Plan: Will hold off on lisinopril given patient's SALOME Avoid nephrotoxic agents Renally dose medications #Hx of hypertension Patient blood pressure was well-controlled on admission Will hold off on lisinopril given patient's SALOME Disposition: Patient admitted to [facility] for complicated UTI requiring IV Abx. Diet: regular GI prophylaxis: not indicated DVT prophylaxis: lovenox Code:full Case disclosed with Attending Dr. Laura Fay PGY1 Attending Provider Attestation/Addendum I reviewed labs, imaging, EKG, home medications and prior available records. Face to face evaluation was performed by me. I have personally examined the patient and discussed assessment and plan with the IM team. I reviewed the resident note and agree with the plan with exceptions as below. Pseudomonas UTI Leukocytosis SALOME BPH Essential hypertension Started IV Zosyn Follow-up repeat urine culture Continue IV fluids Monitor kidney function. Avoid nephrotoxins. Renally dosed medications Trend WBC: Downtrending
[2025-03-11 13:03] LABS: Anion Gap 10 (7-16); BUN/Creatinine Ratio 27 Ratio (12-20); Blood Urea Nitrogen 48 mg/dL (9-23); Calcium 8.5 mg/dL (8.3-10.6); Carbon Dioxide 24.7 mMol/L (20.0-31.0); Chloride 103 mMol/L (98-107); Creatinine (Component) 1.8 mg/dL (0.6-1.3); Estimated Creatinine Clearance 41.3 mL/min (>60); Glucose 115 mg/dL (74-106); Osmolality,Calculated 289 (275-295); Potassium 4.7 mMol/L (3.4-5.1); Sodium 138 mMol/L (136-145); eGFR 40 See Note
[2025-03-11] MEDS: CEFEPIME INJ 2 GM in SODIUM CHLORIDE 0.9% (Popper) 50 ML IV (13:12)
[2025-03-11 14:38] VITALS: BMI 25.7
[2025-03-11 15:10] VITALS: PULSE 82; RESP 18; RESP 98
[2025-03-11 16:00] VITALS: BP 116/65; PULSE 69; RESP 18; TEMP 36.2; O2SAT 97
[2025-03-11 20:00] VITALS: BP 111/73; PULSE 86; RESP 20; TEMP 36.4; O2SAT 97
[2025-03-11] MEDS: CEFEPIME INJ 1 GM in SODIUM CHLORIDE 0.9% (Popper) 50 ML IV (20:24)
[2025-03-11 23:53] VITALS: BP 112/69; PULSE 71; RESP 20; TEMP 36.4; O2SAT 96
[2025-03-12 04:00] VITALS: BP 118/65; PULSE 78; RESP 16; TEMP 36.2; O2SAT 93
[2025-03-12 07:09] LABS: Alanine Aminotransferase 33 U/L (10-49); Albumin, Serum 4.1 gm/dL (3.4-4.8); Albumin/Globulin Ratio 1.5 (1.2-2.2); Alkaline Phosphatase 65 U/L (46-116); Anion Gap 8 (7-16); Aspartate Amino Transferase 25 U/L (0-34); BUN/Creatinine Ratio 22 Ratio (12-20); Bilirubin,Total 0.4 mg/dL (0.3-1.2); Blood Urea Nitrogen 35 mg/dL (9-23); Calcium 8.6 mg/dL (8.3-10.6); Calcium (Corrected) 8.6 mg/dL (8.5-10.1); Carbon Dioxide 26.5 mMol/L (20.0-31.0); Chloride 107 mMol/L (98-107); Creatinine (Component) 1.6 mg/dL (0.6-1.3); Estimated Creatinine Clearance 46.5 mL/min (>60); Globulin 2.8 gm/dL (2.3-3.5); Glucose 109 mg/dL (74-106); Magnesium 2.4 mg/dL (1.6-2.6); Osmolality,Calculated 290 (275-295); Potassium 5.2 mMol/L (3.4-5.1); Sodium 141 mMol/L (136-145); Total Protein 6.9 gm/dL (5.7-8.2); eGFR 46 See Note
[2025-03-12 07:12] LABS: Basophils # (Auto) 0.1 Thou/mm3 (0.0-0.2); Basophils % (Auto) 1 % (0-2.5); Eosinophils # (Auto) 0.3 Thou/mm3 (0.0-0.5); Eosinophils % (Auto) 4 % (0-10); Hematocrit 40.6 % (41.0-53.0); Hemoglobin 13.4 g/dL (13.5-16.0); Immature Granulocytes % (Auto) 3 % (0-0); Immature Granulocytes Auto 0.23 Thou/mm3 (0.00-0.00); Lymphocytes # (Auto) 1.2 Thou/mm3 (1.0-4.8); Lymphocytes % (Auto) 14 % (10-50); Mean Corpuscular Hemoglobin 30.2 pg (25.0-35.0); Mean Corpuscular Volume 91 fL (80-100); Monocytes # (Auto) 1.3 Thou/mm3 (0.0-0.8); Monocytes % (Auto) 16 % (0-12); Neutrophils # (Auto) 5.3 Thou/mm3 (1.8-7.7); Neutrophils % (Auto) 63 % (37-80); Nucleated Red Blood Cell % 0 /100 WBC (0); Platelet Count 237 Thou/mm3 (140-440); Red Blood Count 4.44 Miln/mm3 (4.50-5.90); White Blood Count 8.5 Thou/mm3 (3.8-10.6)
[2025-03-12 07:46] VITALS: BP 113/70; PULSE 76; RESP 18; TEMP 36.7; O2SAT 99
--- NOTE | 2025-03-12 08:47 | PD.RESPRO ---
Documentation for date of: 03/12/25 Subjective Subjective Interval history: Patient was seen and examined at bedside this morning. No acute overnight events. Patient is feeling well and states that his abdominal distention and pain has improved. Any spikes in fevers or WBCs. Patient's kidney function has slightly improved today to creatinine of 1.6 from 1.8 yesterday. Will continue to hold patient's blood pressure medication as he has been well-controlled up to now. Pending PICC line insertion and ID consult tomorrow. Patient's potassium was slightly elevated at 5.2, repeated potassium before giving any treatment. Exam Vital Signs Temp Pulse Resp BP Pulse Ox O2 Del Method 98.1 F 76 18 113/70 99 Room Air 03/12/25 07:46 03/12/25 07:46 03/12/25 07:46 03/12/25 07:46 03/12/25 07:46 03/12/25 04:00 Narrative Exam General: A/O x3, no acute distress, well-nourished, well-developed Eyes: PERRL, EOMI. Anicteric, vision grossly intact. Ears: No ear pain, no ear discharge, Hearing grossly intact. Nose: No nasal discharge. Mouth/Throat: Moist mucous membranes, no redness, no lesions. Neck: Neck supple, non-tender, no cervical lymphadenopathy. Lungs: Clear LUIS F to auscultation and percussion, No accessory muscle use. Cardio: Normal S1/S2, regular rhythm, no murmurs, no JVD Abdomen: Soft, non-tender, no palpable masses, peristalsis present, no guarding or rebound. Extremities: Symmetrical, no significant deformities, no peripheral edema , non-tender, peripheral pulses presents. Skin: No rashes, no lesions, warm to touch. Neuro: No focal neurological deficits. motor and sensory intact. Psych: Cooperative, appropriate mood and effect. Objective Labs 03/13/25 05:15 03/13/25 05:15 Labs: Laboratory Results - last 24 hr 03/11/25 03/12/25 12:36 06:31 WBC 8.1 D 8.5 RBC 4.06 L 4.44 L Hgb 12.4 L 13.4 L Hct 35.5 L 40.6 L MCV 87 91 MCH 30.5 30.2 MCHC 34.9 33.0 RDW Std Deviation 40.5 42.0 Plt Count 229 237 Neut % (Auto) 71 63 Lymph % (Auto) 10 14 Hubbard % (Auto) 15 H 16 H Eos % (Auto) 2 4 Baso % (Auto) 0 1 Neut # (Auto) 5.8 5.3 Lymph # (Auto) 0.8 L 1.2 Hubbard # (Auto) 1.2 H 1.3 H Eos # (Auto) 0.1 0.3 Baso # (Auto) 0.0 0.1 Immature Gran # (Auto) 0.14 H 0.23 H Absolute Nucleated RBC 0.00 0.00 Immature Gran % 2 H 3 H Nucleated RBC % 0 0 Sodium 138 141 Potassium 4.7 5.2 H D Chloride 103 107 Carbon Dioxide 24.7 26.5 Anion Gap 10 8 BUN 48 H 35 H Creatinine 1.8 H D 1.6 H Estim Creat Clear Calc 41.3 L 46.5 L eGFR 40 L 46 L BUN/Creatinine Ratio 27 H 22 H Glucose 115 H 109 H Calculated Osmolality 289 290 Calcium 8.5 8.6 Corrected Calcium 8.6 Magnesium 2.4 Total Bilirubin 0.4 AST 25 ALT 33 Alkaline Phosphatase 65 Total Protein 6.9 Albumin 4.1 D Globulin 2.8 Albumin/Globulin Ratio 1.5 Quality Measures Quality Measures none Advance care planning discussed with:: patient Assessment & Plan Assessment Current Active Medications: Generic Name Dose Route Start Last Admin Trade Name Freq PRN Reason Stop Dose Admin Acetaminophen 650 mg 03/11/25 12:53 Acetaminophen 325 Mg Tablet PO 04/10/25 12:52 Q6H PRN pain(1-3) and Fever >100.4 Hydrocodone Bitart/Acetaminophen 1 tab 03/11/25 12:53 Hydrocodone/Apap 5/325 Tablet PO 03/16/25 12:52 Q4HR PRN PAIN SCALE 4-10(Mod-Sev Enoxaparin Sodium 40 mg 03/12/25 09:00 Enoxaparin Sod Inj 40 Mg/0.4 Ml Syringe SC 03/26/25 08:59 QDAY LINN Finasteride 5 mg 03/12/25 09:00 Finasteride 5 Mg Tablet PO 04/11/25 08:59 QDAY LINN Cefepime HCl 1 gm/ Sodium 50 mls @ 100 mls/hr 03/11/25 21:00 03/11/25 20:24 Chloride IV 03/18/25 12:57 100 mls/hr Q12HR LINN Administration Ondansetron HCl 4 mg 03/11/25 12:53 Ondansetron Inj 2 Mg/Ml Inj 2 Ml IV 04/10/25 12:52 Q6H PRN NAUSEA OR VOMITING Protocol Tamsulosin HCl 0.4 mg 03/12/25 09:00 Tamsulosin Hcl 0.4 Mg Capsule PO 04/11/25 08:59 QDAY LINN Plan 69-year-old male with past medical history of BPH and hypertension was admitted to the hospital on 01/26/2025 due to complicated UTI, Pseudomonas aeruginosa. #Complicated UTI #Pseudomonas aeruginosa #Hx of BPH Patient was seen in the ER on 03/09/2025 due to dysuria with abdominal distention and urinary retention. Patient had Vora placed on 03/09/2025 which improved his urinary retention and his abdominal distention. Urine culture on 03/09/2025 did grow Pseudomonas aeruginosa which was sensitive to cefepime. Plan: Start cefepime 2 g twice daily (03/11/2025?) Input and output every shift Continue tamsulosin 0.4 mg daily and finasteride 5 mg daily Patient will need a PICC line insertion by IR, order for Thursday ID consulted, appreciate recommendations #SALOME, improving Patient creatinine 1.6 today from 1.8 yesterdya Most likely secondary to obstructive uropathy Base creatinine 1.2 Plan: Will continue to hold off on lisinopril given patient's SALOME Avoid nephrotoxic agents Renally dose medications #Hx of hypertension Patient blood pressure is well-controlled Will continue to hold off on lisinopril given patient's SALOME Disposition: Patient admitted to [facility] for complicated UTI requiring IV Abx, pending PICC line and ID consult. Diet: regular GI prophylaxis: not indicated DVT prophylaxis: lovenox Code:full Case disclosed with Attending Dr. Laura Fay PGY1 Attending Provider Attestation/Addendum I reviewed labs, imaging, EKG, home medications and prior available records. Face to face evaluation was performed by me. I have personally examined the patient and discussed assessment and plan with the IM team. I reviewed the resident note and agree with the plan with exceptions as below. Pseudomonas UTI Leukocytosis SALOME on CKD BPH Essential hypertension Started IV Zosyn Trend WBC: Downtrending Consulted IR for PICC line insertion Consulted ID Creatinine improved. Monitor kidney function. Avoid nephrotoxins. Renally dosed medications
[2025-03-12 09:30] VITALS: PULSE 77; RESP 16; RESP 97
[2025-03-12] MEDS: FINASTERIDE 5 MG TABLET PO (09:33)
[2025-03-12] MEDS: ENOXAPARIN SOD INJ 40 MG/0.4 ML SYRINGE SC (09:33)
[2025-03-12] MEDS: TAMSULOSIN HCL 0.4 MG CAPSULE PO (09:33)
[2025-03-12] MEDS: CEFEPIME INJ 1 GM in SODIUM CHLORIDE 0.9% (Popper) 50 ML IV ×2 (09:33→20:07)
[2025-03-12 10:33] LABS: Potassium 4.4 mMol/L (3.4-5.1)
[2025-03-12 12:00] VITALS: BP 112/67; PULSE 71; RESP 18; TEMP 36.2; O2SAT 97
[2025-03-12 16:00] VITALS: BP 109/61; PULSE 85; RESP 18; TEMP 36.3; O2SAT 97
[2025-03-12 20:00] VITALS: BP 104/56; PULSE 84; RESP 18; TEMP 36.3; O2SAT 92
[2025-03-13] VITALS (9 sets, daily range): BP systolic 105–125; BP diastolic 62–73; PULSE 65–84; RESP 16–97; TEMP 35.6–36.8; O2SAT 95–98
[2025-03-13 06:06] LABS: Basophils # (Auto) 0.1 Thou/mm3 (0.0-0.2); Basophils % (Auto) 2 % (0-2.5); Eosinophils # (Auto) 0.4 Thou/mm3 (0.0-0.5); Eosinophils % (Auto) 5 % (0-10); Hematocrit 43.2 % (41.0-53.0); Hemoglobin 14.2 g/dL (13.5-16.0); Immature Granulocytes % (Auto) 7 % (0-0); Immature Granulocytes Auto 0.65 Thou/mm3 (0.00-0.00); Lymphocytes # (Auto) 1.4 Thou/mm3 (1.0-4.8); Lymphocytes % (Auto) 15 % (10-50); Mean Corpuscular HGB Conc 32.9 g/dl (31.0-37.0); Mean Corpuscular Hemoglobin 30.4 pg (25.0-35.0); Mean Corpuscular Volume 93 fL (80-100); Monocytes # (Auto) 1.1 Thou/mm3 (0.0-0.8); Monocytes % (Auto) 12 % (0-12); Neutrophils # (Auto) 5.4 Thou/mm3 (1.8-7.7); Neutrophils % (Auto) 60 % (37-80); Nucleated Red Blood Cell % 0 /100 WBC (0); Platelet Count 275 Thou/mm3 (140-440); RDW Standard Deviation 42.5 fL (35.1-43.9); Red Blood Count 4.67 Miln/mm3 (4.50-5.90); White Blood Count 9.1 Thou/mm3 (3.8-10.6)
[2025-03-13 06:27] LABS: Alanine Aminotransferase 39 U/L (10-49); Albumin, Serum 4.5 gm/dL (3.4-4.8); Albumin/Globulin Ratio 1.5 (1.2-2.2); Alkaline Phosphatase 73 U/L (46-116); Anion Gap 10 (7-16); Aspartate Amino Transferase 22 U/L (0-34); BUN/Creatinine Ratio 21 Ratio (12-20); Bilirubin,Total 0.4 mg/dL (0.3-1.2); Blood Urea Nitrogen 33 mg/dL (9-23); Chloride 105 mMol/L (98-107); Creatinine (Component) 1.6 mg/dL (0.6-1.3); Estimated Creatinine Clearance 46.5 mL/min (>60); Glucose 120 mg/dL (74-106); Magnesium 2.2 mg/dL (1.6-2.6); Osmolality,Calculated 289 (275-295); Potassium 4.8 mMol/L (3.4-5.1); Sodium 141 mMol/L (136-145); Total Protein 7.5 gm/dL (5.7-8.2); eGFR 46 See Note
[2025-03-13] MEDS: CEFEPIME INJ 1 GM in SODIUM CHLORIDE 0.9% (Popper) 50 ML IV ×2 (08:09→20:44)
[2025-03-13] MEDS: TAMSULOSIN HCL 0.4 MG CAPSULE PO (08:11)
[2025-03-13] MEDS: FINASTERIDE 5 MG TABLET PO (08:11)
[2025-03-13 08:44] LABS: Prothrombin Time 10.9 Seconds (9.0-12.2)
--- NOTE | 2025-03-13 09:25 | PD.RESPRO ---
Documentation for date of: 03/13/25 Subjective Subjective Interval history: Patient was seen and examined at bedside this morning. No overnight events. Patient has not spiked any fevers or WBCs. Patient still pending ID consult and PICC line insertion. PICC line insertion was held until we get ID recommendations, but ID stated he need PICC for IV Abx until 03/09/2025 Will continue holding Lovenox for today. Exam Vital Signs Temp Pulse Resp BP Pulse Ox O2 Del Method 97.7 F 78 17 125/73 98 Room Air 03/13/25 07:26 03/13/25 07:26 03/13/25 07:26 03/13/25 07:26 03/13/25 07:26 03/13/25 07:26 Narrative Exam General: A/O x3, no acute distress, well-nourished, well-developed Eyes: PERRL, EOMI. Anicteric, vision grossly intact. Ears: No ear pain, no ear discharge, Hearing grossly intact. Nose: No nasal discharge. Mouth/Throat: Moist mucous membranes, no redness, no lesions. Neck: Neck supple, non-tender, no cervical lymphadenopathy. Lungs: Clear LUIS F to auscultation and percussion, No accessory muscle use. Cardio: Normal S1/S2, regular rhythm, no murmurs, no JVD Abdomen: Soft, non-tender, no palpable masses, peristalsis present, no guarding or rebound. Extremities: Symmetrical, no significant deformities, no peripheral edema , non-tender, peripheral pulses presents. Skin: No rashes, no lesions, warm to touch. Neuro: No focal neurological deficits. motor and sensory intact. Psych: Cooperative, appropriate mood and effect. Objective Labs 03/13/25 05:15 03/13/25 05:15 Labs: Laboratory Results - last 24 hr 03/12/25 03/13/25 09:01 05:15 WBC 9.1 RBC 4.67 Hgb 14.2 Hct 43.2 MCV 93 MCH 30.4 MCHC 32.9 RDW Std Deviation 42.5 Plt Count 275 D Neut % (Auto) 60 Lymph % (Auto) 15 [place] % (Auto) 12 Eos % (Auto) 5 Baso % (Auto) 2 Neut # (Auto) 5.4 Lymph # (Auto) 1.4 [place] # (Auto) 1.1 H Eos # (Auto) 0.4 Baso # (Auto) 0.1 Immature Gran # (Auto) 0.65 H Absolute Nucleated RBC 0.00 Immature Gran % 7 H Nucleated RBC % 0 PT 10.9 INR 1.0 Sodium 141 Potassium 4.4 D 4.8 Chloride 105 Carbon Dioxide 26.0 Anion Gap 10 BUN 33 H Creatinine 1.6 H Estim Creat Clear Calc 46.5 L eGFR 46 L BUN/Creatinine Ratio 21 H Glucose 120 H Calculated Osmolality 289 Calcium 9.0 Corrected Calcium 9.0 Magnesium 2.2 Total Bilirubin 0.4 AST 22 ALT 39 Alkaline Phosphatase 73 Total Protein 7.5 Albumin 4.5 Globulin 3.0 Albumin/Globulin Ratio 1.5 Quality Measures Quality Measures none Advance care planning discussed with:: patient Assessment & Plan Assessment Current Active Medications: Generic Name Dose Route Start Last Admin Trade Name Freq PRN Reason Stop Dose Admin Acetaminophen 650 mg 03/11/25 12:53 Acetaminophen 325 Mg Tablet PO 04/10/25 12:52 Q6H PRN pain(1-3) and Fever >100.4 Hydrocodone Bitart/Acetaminophen 1 tab 03/11/25 12:53 Hydrocodone/Apap 5/325 Tablet PO 03/16/25 12:52 Q4HR PRN PAIN SCALE 4-10(Mod-Sev Enoxaparin Sodium 40 mg 03/12/25 09:00 03/12/25 09:33 Enoxaparin Sod Inj 40 Mg/0.4 Ml Syringe SC 03/26/25 08:59 40 mg QDAY LINN Administration Finasteride 5 mg 03/12/25 09:00 03/13/25 08:11 Finasteride 5 Mg Tablet PO 04/11/25 08:59 5 mg QDAY LINN Administration Cefepime HCl 1 gm/ Sodium 50 mls @ 100 mls/hr 03/11/25 21:00 03/13/25 08:09 Chloride IV 03/18/25 12:57 100 mls/hr Q12HR LINN Administration Ondansetron HCl 4 mg 03/11/25 12:53 Ondansetron Inj 2 Mg/Ml Inj 2 Ml IV 04/10/25 12:52 Q6H PRN NAUSEA OR VOMITING Protocol Tamsulosin HCl 0.4 mg 03/12/25 09:00 03/13/25 08:11 Tamsulosin Hcl 0.4 Mg Capsule PO 04/11/25 08:59 0.4 mg QDAY LINN Administration Plan 69-year-old male with past medical history of BPH and hypertension was admitted to the hospital on 01/26/2025 due to complicated UTI, Pseudomonas aeruginosa. #Complicated UTI #Pseudomonas aeruginosa #Hx of BPH Patient was seen in the ER on 03/09/2025 due to dysuria with abdominal distention and urinary retention. Patient had Vora placed on 03/09/2025 which improved his urinary retention and his abdominal distention. Urine culture on 03/09/2025 did grow Pseudomonas aeruginosa which was sensitive to cefepime. Plan: Start cefepime 2 g twice daily (03/11/2025?03/18/2025) Input and output every shift Continue tamsulosin 0.4 mg daily and finasteride 5 mg daily Patient will need a PICC line insertion by IR ID consulted, appreciate recommendations #SALOME, improving Patient creatinine 1.6 stable at Most likely secondary to obstructive uropathy Base creatinine 1.2 Plan: Will continue to hold off on lisinopril given patient's SALOME Avoid nephrotoxic agents Renally dose medications #Hx of hypertension Patient blood pressure is well-controlled Will continue to hold off on lisinopril given patient's SALOME Disposition: Patient admitted to [facility] for complicated UTI requiring IV Abx, pending PICC line and ID consult. Diet: regular GI prophylaxis: not indicated DVT prophylaxis: lovenox Code:full Case disclosed with Attending Dr. Laura Fay PGY1 Attending Provider Attestation/Addendum I reviewed labs, imaging, EKG, home medications and prior available records. Face to face evaluation was performed by me. I have personally examined the patient and discussed assessment and plan with the IM team. I reviewed the resident note and agree with the plan with exceptions as below. Pseudomonas UTI Leukocytosis SALOME on CKD BPH Essential hypertension Started IV Zosyn Trend WBC: Downtrending Consulted IR for PICC line insertion Consulted ID: Okay for IV Zosyn on IV cefepime Discussed with transfer nurse: Will arrange for home health for the IV Zosyn. Discussed with patient's sister who will help administering the medication at home Creatinine improved. Monitor kidney function. Avoid nephrotoxins. Renally dosed medications
--- NOTE | 2025-03-13 10:05 | PD.IDPROG ---
Subjective Subjective Interval history: uti not responding to cipro wili with probable ckd. improved Exam Vital Signs Temp Pulse Resp BP Pulse Ox O2 Del Method 97.7 F 78 17 125/73 98 Room Air 03/13/25 07:26 03/13/25 07:26 03/13/25 07:26 03/13/25 07:26 03/13/25 07:26 03/13/25 07:26 Narrative Exam benign Objective - Internal Medicine Labs 03/13/25 05:15 03/13/25 05:15 Labs: Laboratory Results - last 24 hr 03/12/25 03/13/25 09:01 05:15 WBC 9.1 RBC 4.67 Hgb 14.2 Hct 43.2 MCV 93 MCH 30.4 MCHC 32.9 RDW Std Deviation 42.5 Plt Count 275 D Neut % (Auto) 60 Lymph % (Auto) 15 [place] % (Auto) 12 Eos % (Auto) 5 Baso % (Auto) 2 Neut # (Auto) 5.4 Lymph # (Auto) 1.4 [place] # (Auto) 1.1 H Eos # (Auto) 0.4 Baso # (Auto) 0.1 Immature Gran # (Auto) 0.65 H Absolute Nucleated RBC 0.00 Immature Gran % 7 H Nucleated RBC % 0 PT 10.9 INR 1.0 Sodium 141 Potassium 4.4 D 4.8 Chloride 105 Carbon Dioxide 26.0 Anion Gap 10 BUN 33 H Creatinine 1.6 H Estim Creat Clear Calc 46.5 L eGFR 46 L BUN/Creatinine Ratio 21 H Glucose 120 H Calculated Osmolality 289 Calcium 9.0 Corrected Calcium 9.0 Magnesium 2.2 Total Bilirubin 0.4 AST 22 ALT 39 Alkaline Phosphatase 73 Total Protein 7.5 Albumin 4.5 Globulin 3.0 Albumin/Globulin Ratio 1.5 Assessment & Plan A&P Narrative psa in urinefrom 03/09 wili/ckd improved htn bph with obstruction after surgery noted by pt he had failed quinolone, so nopo rx. main intervetion is the catheter as he has been afebrile. work with pharm on cost as options appear to be iv zosyn or iv cefepime for max of 7 d Time Spent With Patient Time: Total time spent is greater than 50% in coordination of care (as documented) at patient's floor/unit and/or counseling patient:
--- NOTE | 2025-03-13 10:53 | PC.SS ---
Patient Chilango Kyle is a 69 Year old male admitted for Complicated UTI. SS met with patient at bedside to discuss discharge plan. Patient reports he lives at home alone. Patient reports his sister, Carmen Guo is his surrogate decision maker, [phone]. Patient reports he does not utilize any source of DME to assist with ambulation, patient is able to complete all ADL's independently. Choice of pharmacy is [facility]. At time of discharge patient would like to return back home. Sister will provide transportation. Discharge plan Home Next of kin: SisterCarmen [phone] PCP: Souleymane Gan @ [facility].
--- NOTE | 2025-03-13 11:04 | ESCONSULT_ITS ---
HPI Data of Consult Requesting Physician: Veto Sanchez MD Admitting Provider: Veto Sanchez MD Attending Provider: Veto Sanchez MD Primary Care Provider: Souleymane Gan PA-C Consult Narrative History of present illness: 69-year-old male with past medical history of BPH and hypertension was admitted to the hospital on 03/11/2025 after urine culture taken on 03/09/2025 the patient visited the ED came back positive for Pseudomonas resistant to p.o. antibiotics. Patient had come on 03/09/2025 due to abdominal pain, abdominal distention, dysuria, and urinary retention after he had his Vora taken out on 03/06/2025 by his urologist. Patient stated that he had a prostate biopsy on 02/21/2025 and had his Vora since then until 03/06/2025 when it was taken out by his urologist. He mentioned that after it was taken out he had small drops of urine when he tried to urinate, but it was experiencing a lot of burning sensation and abdominal distention which also made him to lose his appetite. Patient denied any fevers, chills, sweats, or chest pain. He mentions that these were his only symptoms and that since he came to the ED he has had relief in his abdominal distention and pain. cc:: cc: Veto Sanchez MD Exam Vital Signs Temp Pulse Resp BP Pulse Ox O2 Del Method 97.7 F 78 17 125/73 98 Room Air 03/13/25 07:26 03/13/25 07:26 03/13/25 07:26 03/13/25 07:26 03/13/25 07:26 03/13/25 07:26 Narrative Exam GENERAL: Alert and oriented x3, no acute distress. Eyes: EOMI, Anicteric HEART: Regular rate and rhythm, no murmurs, rubs or gallops. LUNGS: Clear to auscultation bilaterally with symmetrical chest rise. No labored breathing or intercostal retraction. ABDOMEN: Soft, NT,ND, no guarding or rebound tenderness. There are no abnormal masses palpated. EXTREMITIES: Non-tender. No edema. No cyanosis. Patient is able to move all 4 extremities well, with full ROM. SKIN: Warm and dry, no jaundice or rashes noted on exposed skin. PSYCHIATRIC: Patient is in normal mood and affect, cooperative. Results Labs 03/13/25 05:15 03/13/25 05:15 Labs: Short CBC 03/13/25 Range/Units 05:15 WBC 9.1 (3.8-10.6) Thou/mm3 Hgb 14.2 (13.5-16.0) g/dL Hct 43.2 (41.0-53.0) % Plt Count 275 D (140-440) Thou/mm3 BMP 03/13/25 05:15 Sodium 141 Potassium 4.8 Chloride 105 Carbon Dioxide 26.0 BUN 33 H Creatinine 1.6 H Glucose 120 H Calcium 9.0 Liver Function 03/13/25 Range/Units 05:15 Total Bilirubin 0.4 (0.3-1.2) mg/dL AST 22 (0-34) U/L ALT 39 (10-49) U/L Alkaline Phosphatase 73 (46-116) U/L Albumin 4.5 (3.4-4.8) gm/dL Quality Measures Quality Measures none Advance care planning discussed with:: patient Medications Home Medications and Allergies Home Medications ?Medication ?Instructions ?Recorded ?Confirmed ?Type tamsulosin 0.4 mg capsule (Flomax) 0.4 mg PO QDAY ##0 09/20/17 02/20/25 History lisinopril 10 mg tablet 10 mg PO QDAY 02/14/2102/20 History ciprofloxacin HCl 500 mg tablet 500 mg PO BID 02/20/25 02/20/25 History (Cipro) finasteride 5 mg tablet 5 mg PO DAILY 02/20/2502/20 History Allergies Allergy/AdvReac Type Severity Reaction Status Date / Time No Known Allergies Allergy Verified 03/09/25 10:50 Visit Medications Acetaminophen (Acetaminophen 325 Mg Tablet) 650 mg PO Q6H PRN PRN Reason: pain(1-3) and Fever >100.4 Stop: 04/10/25 12:52 Hydrocodone Bitart/Acetaminophen (Hydrocodone/Apap 5/325 Tablet) 1 tab PO Q4HR PRN PRN Reason: PAIN SCALE 4-10(Mod-Sev Stop: 03/16/25 12:52 Enoxaparin Sodium (Enoxaparin Sod Inj 40 Mg/0.4 Ml Syringe) 40 mg SC QDAY LINN Stop: 03/26/25 08:59 Last Admin: 03/12/25 09:33 Dose: 40 mg Finasteride (Finasteride 5 Mg Tablet) 5 mg PO QDAY [facility] Stop: 04/11/25 08:59 Last Admin: 03/13/25 08:11 Dose: 5 mg Cefepime HCl 1 gm/ Sodium (Chloride) 50 mls @ 100 mls/hr IV Q12HR LINN Stop: 03/18/25 12:57 Last Admin: 03/13/25 08:09 Dose: 100 mls/hr Ondansetron HCl (Ondansetron Inj 2 Mg/Ml Inj 2 Ml) 4 mg IV Q6H PRN; Protocol PRN Reason: NAUSEA OR VOMITING Stop: 04/10/25 12:52 Tamsulosin HCl (Tamsulosin Hcl 0.4 Mg Capsule) 0.4 mg PO QDAY [facility] Stop: 04/11/25 08:59 Last Admin: 03/13/25 08:11 Dose: 0.4 mg Discontinued Medications Cefepime HCl 2 gm/ Sodium (Chloride) 50 mls @ 100 mls/hr IV Q12HR [facility] Stop: 03/18/25 12:57 Last Admin: 03/11/25 13:12 Dose: 100 mls/hr Lisinopril (Lisinopril 2.5 Mg Tablet) 10 mg PO QDAY [facility] Stop: 04/11/25 08:59 Assessment & Plan Plan 69-year-old male with past medical history of BPH and hypertension was admitted to the hospital on 03/11/2025 after urine culture taken on 03/09/2025 the patient visited the ED came back positive for Pseudomonas resistant to p.o. antibiotics(Cipro) #Complicated UTI secondary to Pseudomonas #UTI resistant to quinolones #Status post prostate biopsy Patient presented to ER on 09 March with a chief complaint of urinary tract infection symptoms Patient was discharged from ED and was prescribed ciprofloxacin Urine cultures were sent, which came back positive for Pseudomonas resistant to Cipro Patient was called back to hospital and admitted for complicated UTI treatment and management Infectious disease was consulted for complicated UTI Plan Patient was started on cefepime 2 g twice daily Continue cefepime versus Zosyn for maximum of 7 days after discussing with pharmacy in regards to cost of medication Other active medical problems #SALOME(improved) #Hypertension ? Managed by primary team I, Jhon Osorio MD PGY3 reviewed and discussed the case with attending physician Dr. Cotton
--- NOTE | 2025-03-13 11:15 | PC.SS ---
SS follow up note; Patient is needing IV ABX pending PIC Line. Patient would like to discharge back home with HH. SS met with patient at bedside and he informed SS that his sister, Carmen Guo will be able to administer IV Med. Patient's PCP is Dr. Souleymane Gan, at [facility]. Patient reports he last seen him around 3 months ago. Patient is open to any HH agencies. SS updated Dr. Hall and informed him patient needs HH order sent that way Transfer nurse could work on getting patient established with a HH agency. Patient is pending a PIC Line.
--- NOTE | 2025-03-13 12:49 | ESCONSULT_ITS ---
RE: MACARIO SANTIAGO : 1955 DATE OF CONSULTATION: 03/12/2025 REFERRING PHYSICIAN: Dr. Sanchez. REASON FOR CONSULTATION: Pyuria with obstruction and acute renal failure. HISTORY OF PRESENT ILLNESS: The patient is a 69-year-old admitted for a febrile illness and possibly a UTI after BPH surgery about a week ago. He had surgery by Dr. Negro as an outpatient. His response to trouble voiding for a day or so after surgery and then had a catheter placed, which helped. Then, he developed signs and symptoms of UTI, so he was admitted. His creatinine on admission was not normal and reached a maximum of about 2.4 to 2.7 and is coming down nicely. Atherosclerotic disease results in obstruction. There is no positive blood culture so far and . I am asked to see him in regards to antibiotic regimen. It looks like he failed an oral regimen of Cipro and Keflex, which is probably reasonable in his situation PAST MEDICAL HISTORY: Include BPH and hypertension. PAST SURGICAL HISTORY: Includes back surgery, neck surgery, umbilical hernia surgery and possibly others. He is not much of a historian. ALLERGIES: NONE KNOWN. IMMUNIZATIONS: Last tetanus is less than 10 years. He stated uncertain. He does take flu shot regularly. He has had two COVID vaccines and has had pneumococcal vaccination as well. FAMILY HISTORY: Positive and unremarkable. SOCIAL HISTORY: He lives alone. The patient does not smoke. He used to work. He is retired. PHYSICAL EXAMINATION: GENERAL: The patient is well-appearing. HEENT: Benign. RECOMMENDATIONS: culture may be from a catheter, so it may be somewhat contaminated. The usual course of treatment is about 7 days. With prior rx failure, I will avoid the quinolones for now. I will check on him superficially on Thursday. cc: Dr. Sanchez DT: 11:15:10 TT: 11:47:00 Ref: [id number] - TID: [id number] MTDD
[2025-03-14] VITALS (7 sets, daily range): BP systolic 116–125; BP diastolic 69–75; PULSE 66–78; RESP 16–93; TEMP 36.6; O2SAT 95–100
--- NOTE | 2025-03-14 06:00 | XR_ITS ---
Examination: Ultrasound-guided needle placement right brachial vein. Dual-lumen central line placement (PICC line). Fluoroscopy AP chest, portable, single view Exam date and time:March 14, 2025 at 1212 hours INDICATIONS: Need for long-term antibiotic therapy for urinary tract infections A timeout was completed verifying correct patient, procedure, site, positioning Informed consent provided Technique: The patient's site was prepped and draped in sterile fashion. Maximum Sterile Barrier Technique used including cap, mask, sterile gown, sterile gloves, and sterile full body drape. If ultrasound technique used: sterile gel and sterile probe covers. Hand Hygiene performed using proper scrub, soap and water, or alcohol-based hand rub. Ultrasound utilized to confirm patency of the right brachial vein Utilizing ultrasonographic guidance successful 21-gauge needle puncture into the right brachial vein Ultrasound images recorded and stored. 5 cc 1% lidocaine administered for local anesthetic. Successful micropuncture with a 21-gauge needle is performed. 0.18 wire guide is then introduced into the SVC under fluoroscopic guidance. Dual-lumen catheter dilator is then introduced, followed by the catheter in the SVC and proper position under fluoroscopic guidance. Successful aspiration of blood and flushing with heparinized saline is then performed in the 2 venous limbs. The catheter sutured in place. Findings: Under fluoroscopy, the tip of the catheter is in good position in the vena cava. Portable chest x-ray, post line placement is ordered. Estimated blood loss 3 cc The patient tolerated the procedure well and was in stable and satisfactory condition at completion of the procedure Impression: Successful ultrasound-guided needle placement right brachial vein Successful placement of dual lumen central line, percutaneous Fluoroscopy 0.1 minute radiation dose 0.81 milligray 1 spot fluoroscopic chest film. AP chest completion procedure demonstrates satisfactory position central line. May use central line.
[2025-03-14 06:10] LABS: Basophils # (Auto) 0.1 Thou/mm3 (0.0-0.2); Basophils % (Auto) 1 % (0-2.5); Eosinophils # (Auto) 0.4 Thou/mm3 (0.0-0.5); Eosinophils % (Auto) 4 % (0-10); Hemoglobin 12.9 g/dL (13.5-16.0); Immature Granulocytes % (Auto) 7 % (0-0); Immature Granulocytes Auto 0.62 Thou/mm3 (0.00-0.00); Lymphocytes # (Auto) 1.5 Thou/mm3 (1.0-4.8); Lymphocytes % (Auto) 17 % (10-50); Mean Corpuscular HGB Conc 33.9 g/dl (31.0-37.0); Mean Corpuscular Hemoglobin 30.1 pg (25.0-35.0); Mean Corpuscular Volume 89 fL (80-100); Monocytes # (Auto) 1.4 Thou/mm3 (0.0-0.8); Monocytes % (Auto) 15 % (0-12); Neutrophils # (Auto) 5.2 Thou/mm3 (1.8-7.7); Neutrophils % (Auto) 56 % (37-80); Nucleated Red Blood Cell % 0 /100 WBC (0); Platelet Count 248 Thou/mm3 (140-440); RDW Standard Deviation 40.6 fL (35.1-43.9); Red Blood Count 4.29 Miln/mm3 (4.50-5.90); White Blood Count 9.1 Thou/mm3 (3.8-10.6)
[2025-03-14 06:34] LABS: Alanine Aminotransferase 34 U/L (10-49); Albumin, Serum 4.2 gm/dL (3.4-4.8); Albumin/Globulin Ratio 1.4 (1.2-2.2); Alkaline Phosphatase 69 U/L (46-116); Anion Gap 9 (7-16); Aspartate Amino Transferase 18 U/L (0-34); BUN/Creatinine Ratio 17 Ratio (12-20); Bilirubin,Total 0.5 mg/dL (0.3-1.2); Blood Urea Nitrogen 29 mg/dL (9-23); Calcium 8.8 mg/dL (8.3-10.6); Calcium (Corrected) 8.8 mg/dL (8.5-10.1); Carbon Dioxide 25.5 mMol/L (20.0-31.0); Chloride 104 mMol/L (98-107); Creatinine (Component) 1.7 mg/dL (0.6-1.3); Estimated Creatinine Clearance 43.7 mL/min (>60); Globulin 2.9 gm/dL (2.3-3.5); Glucose 111 mg/dL (74-106); Osmolality,Calculated 282 (275-295); Potassium 4.9 mMol/L (3.4-5.1); Sodium 138 mMol/L (136-145); Total Protein 7.1 gm/dL (5.7-8.2); eGFR 43 See Note
[2025-03-14] MEDS: FINASTERIDE 5 MG TABLET PO (08:29)
[2025-03-14] MEDS: CEFEPIME INJ 1 GM in SODIUM CHLORIDE 0.9% (Popper) 50 ML 9 GM IV (08:29)
[2025-03-14] MEDS: TAMSULOSIN HCL 0.4 MG CAPSULE PO (08:29)
--- NOTE | 2025-03-14 08:44 | PC.CC ---
Addendum entered by Dolly Mcdaniel RN 03/14/25 16:30: 1535- Social Service notified to cancel HH request. PT DC'd to SNF. [facility] notified Original Note: Pt is still in house, pending PICC line, [facility] interested.
[2025-03-14] MEDS: PIPER/TAZO 3.375 GM PREMIX 3.375 GM/50 ML BAG IV (09:30)
--- NOTE | 2025-03-14 11:59 | PC.NURSE ---
Pt was taken to cardiac cath lab technologist at this time
[2025-03-14] MEDS: HEPARIN SOD LOCK SYR 100 UNIT/ML 500 UNIT STFIELD (12:45)
[2025-03-14] MEDS: LIDOCAINE INJ PF 1% 5 ML VIAL 3 ML INFL (12:54)
--- NOTE | 2025-03-14 13:36 | PD.ADDDSCHGE ---
Addendum Discharge Addendum Date of report being addended: 03/14/25 Narrative: Attending's attestation: I reviewed labs, imaging, EKG, home medications and prior available records. Face to face evaluation was performed by me. I have personally examined the patient and discussed assessment and plan with the IM team. I reviewed the resident note and agree with the plan with exceptions as below. Pseudomonas UTI Leukocytosis SALOME on CKD BPH Essential hypertension Trend WBC: Downtrending S/p PICC line insertion on 03/14 Consulted ID: Okay for IV Zosyn on IV cefepime Discussed with transfer nurse: Will arrange for home health for IV cefepime 2 g every 12 hours as is less frequent and more durable. Discussed with patient's sister who initially mentioned that she will help administering the medication at home however she later said that she is not comfortable for which we evaluated the patient for SNF placement however, after knowing that he needs antibiotics only for few more days, she is more willing to take care of it Creatinine improved and close to baseline CKD stage IIIb. Monitor kidney function. Avoid nephrotoxins. Renally dosed medications Time spent is 40 minutes. More than 50% of the time was spent on patient education and coordination of care.
--- NOTE | 2025-03-14 13:53 | PD.RESPRO ---
Documentation for date of: 03/14/25 Subjective Subjective Interval history: Patient was seen and examined at bedside this morning. No overnight events. Infectious disease recommended either IV Zosyn or cefepime for total of 7 days (until 03/18/2025). Patient will have PICC line inserted today and will switch cefepime to Zosyn today. No other complaints at this time. Exam Vital Signs Temp Pulse Resp BP Pulse Ox O2 Del Method 97.8 F 72 21 H 124/75 99 Room Air 03/14/25 12:00 03/14/25 13:00 03/14/25 13:00 03/14/25 13:00 03/14/25 13:00 03/14/25 13:00 Narrative Exam General: A/O x3, no acute distress, well-nourished, well-developed Eyes: PERRL, EOMI. Anicteric, vision grossly intact. Ears: No ear pain, no ear discharge, Hearing grossly intact. Nose: No nasal discharge. Mouth/Throat: Moist mucous membranes, no redness, no lesions. Neck: Neck supple, non-tender, no cervical lymphadenopathy. Lungs: Clear LUIS F to auscultation and percussion, No accessory muscle use. Cardio: Normal S1/S2, regular rhythm, no murmurs, no JVD Abdomen: Soft, non-tender, no palpable masses, peristalsis present, no guarding or rebound. Extremities: Symmetrical, no significant deformities, no peripheral edema , non-tender, peripheral pulses presents. Skin: No rashes, no lesions, warm to touch. Neuro: No focal neurological deficits. motor and sensory intact. Psych: Cooperative, appropriate mood and effect. Objective Labs 03/14/25 04:58 03/14/25 04:58 Labs: Laboratory Results - last 24 hr 03/14/25 04:58 WBC 9.1 RBC 4.29 L Hgb 12.9 L Hct 38.0 L MCV 89 MCH 30.1 MCHC 33.9 RDW Std Deviation 40.6 Plt Count 248 Neut % (Auto) 56 Lymph % (Auto) 17 [place] % (Auto) 15 H Eos % (Auto) 4 Baso % (Auto) 1 Neut # (Auto) 5.2 Lymph # (Auto) 1.5 [place] # (Auto) 1.4 H Eos # (Auto) 0.4 Baso # (Auto) 0.1 Immature Gran # (Auto) 0.62 H Absolute Nucleated RBC 0.00 Immature Gran % 7 H Nucleated RBC % 0 Sodium 138 Potassium 4.9 Chloride 104 Carbon Dioxide 25.5 Anion Gap 9 BUN 29 H Creatinine 1.7 H Estim Creat Clear Calc 43.7 L eGFR 43 L BUN/Creatinine Ratio 17 Glucose 111 H Calculated Osmolality 282 Calcium 8.8 Corrected Calcium 8.8 Magnesium 2.0 Total Bilirubin 0.5 AST 18 ALT 34 Alkaline Phosphatase 69 Total Protein 7.1 Albumin 4.2 Globulin 2.9 Albumin/Globulin Ratio 1.4 Quality Measures Quality Measures none Advance care planning discussed with:: patient Assessment & Plan Assessment Current Active Medications: Generic Name Dose Route Start Last Admin Trade Name Freq PRN Reason Stop Dose Admin Acetaminophen 650 mg 03/11/25 12:53 Acetaminophen 325 Mg Tablet PO 04/10/25 12:52 Q6H PRN pain(1-3) and Fever >100.4 Hydrocodone Bitart/Acetaminophen 1 tab 03/11/25 12:53 Hydrocodone/Apap 5/325 Tablet PO 03/16/25 12:52 Q4HR PRN PAIN SCALE 4-10(Mod-Sev Enoxaparin Sodium 40 mg 03/12/25 09:00 03/12/25 09:33 Enoxaparin Sod Inj 40 Mg/0.4 Ml Syringe SC 03/26/25 08:59 40 mg QDAY LINN Administration Finasteride 5 mg 03/12/25 09:00 03/14/25 08:29 Finasteride 5 Mg Tablet PO 04/11/25 08:59 5 mg QDAY LINN Administration Piperacillin/Tazobactam/Dextrose 3,375 mg in 50 mls @ 12.5 mls/hr 03/14/25 13:15 Zosyn IV 03/21/25 13:14 Q8H LINN Ondansetron HCl 4 mg 03/11/25 12:53 Ondansetron Inj 2 Mg/Ml Inj 2 Ml IV 04/10/25 12:52 Q6H PRN NAUSEA OR VOMITING Protocol Tamsulosin HCl 0.4 mg 03/12/25 09:00 03/14/25 08:29 Tamsulosin Hcl 0.4 Mg Capsule PO 04/11/25 08:59 0.4 mg QDAY LINN Administration Plan 69-year-old male with past medical history of BPH and hypertension was admitted to the hospital on 01/26/2025 due to complicated UTI, Pseudomonas aeruginosa. #Complicated UTI #Pseudomonas aeruginosa #Hx of BPH Patient was seen in the ER on 03/09/2025 due to dysuria with abdominal distention and urinary retention. Patient had Vora placed on 03/09/2025 which improved his urinary retention and his abdominal distention. Urine culture on 03/09/2025 did grow Pseudomonas aeruginosa which was sensitive to cefepime. Plan: Discontinue cefepime 2 g twice daily (03/11/2025?03/14/2025) Start Zosyn 3.375 every 6 hours (03/14/2025 - 03/18/2025) Input and output every shift Continue tamsulosin 0.4 mg daily and finasteride 5 mg daily Patient will need a PICC line insertion by IR ID consulted, appreciate recommendations #SALOME Patient creatinine 1.7 from 1.6 yesterday Most likely secondary to obstructive uropathy Base creatinine 1.2 Plan: IV fluids Will continue to hold off on lisinopril given patient's SALOME Avoid nephrotoxic agents Renally dose medications #Hx of hypertension Patient blood pressure is well-controlled Will continue to hold off on lisinopril given patient's SALOME Disposition: Patient admitted to [facility] for complicated UTI requiring IV Abx, pending PICC line Diet: regular GI prophylaxis: not indicated DVT prophylaxis: lovenox Code:full Case disclosed with Attending Dr. Laura Fay PGY1 Attending Provider Attestation/Addendum I reviewed labs, imaging, EKG, home medications and prior available records. Face to face evaluation was performed by me. I have personally examined the patient and discussed assessment and plan with the IM team. I reviewed the resident note and agree with the plan with exceptions as below. Pseudomonas UTI Leukocytosis SALOME on CKD BPH Essential hypertension Trend WBC: Downtrending S/p PICC line insertion on 03/14 Consulted ID: Okay for IV Zosyn on IV cefepime Discussed with transfer nurse: Will arrange for home health for IV cefepime 2 g every 12 hours as is less frequent and more durable. Discussed with patient's sister who initially mentioned that she will help administering the medication at home however she later said that she is not comfortable for which we evaluated the patient for SNF placement however, after knowing that he needs antibiotics only for few more days, she is more willing to take care of it Creatinine improved and close to baseline CKD stage IIIb. Monitor kidney function. Avoid nephrotoxins. Renally dosed medications Time spent is 40 minutes. More than 50% of the time was spent on patient education and coordination of care.
[2025-03-14] MEDS: SODIUM CHLORIDE 0.9% 1000 ML 1,000 ML 80 ML IV (14:52)
[2025-03-14] MEDS: PIPER IV (14:54)
[2025-03-14] MEDS: TAZO IV (14:54)
--- NOTE | 2025-03-14 15:11 | PD.RESDS ---
Planned Discharge Date 03/14/25 DS: Providers Provider Date of admission: 03/11/25 12:53 Primary care physician: Souleymane Gan PA-C Admitting Provider: Veto Sanchez MD Attending Provider on Admission: Veto Sanchez MD Consults: 03/11/25 13:04 Consult to Infectious Diseases Routine Comment: Consulting Provider: Twan Cotton Attending Provider on DC: Veto Sanchez MD Discharging Provider: Veto Sanchez MD DS: Diagnosis Problem List Completed Was Problem List Reviewed/Reconciled?: Yes Hospital Course Hospital Course Hospital course: 69-year-old male with past medical history of BPH and hypertension was admitted to the hospital on 01/26/2025 due to complicated UTI, Pseudomonas aeruginosa. On 03/09/2025 the patient visited the ED and was discharged on p.o. antibiotics for UTI, but urine culture came back positive for Pseudomonas resistant to p.o. antibiotics. In the ED patient came in with still some complains of abdominal distention and some dysuria and with a Vora which was placed on the initial visit on 03/09/2025. Initial labs were relevant for for SALOME (creatinine 1.8 baseline creatinine is 1.2). Urine culture on 03/09/2025 did grow Pseudomonas that was sensitive to cefepime. Patient was started on cefepime throughout the hospital stay and his kidney function improved. ID specialist was consulted and recommended IV antibiotics either cefepime or Zosyn. Patient had a PICC line inserted for continuous IV antibiotics with Cefepime Until 03/18/2025 . At this time patient is stable [facility] Will continue IV antibiotics until 03/18/2025 Discharge plan: Please administer Cefepime 2 g twice daily until end of the day on 03/17/25 Please follow-up with your primary care physician within 1 week upon discharge Please follow-up with your urologist within 1 to 2 weeks upon discharge for evaluation of possibly discontinuing the Vora. Please hold your lisinopril until you follow up with your primary care physician given Acute Kidney Injury. Please continue taking all other home medications as prescribed Please come back to the ER if symptoms persist or worsen. Problem list: #Complicated UTI #Pseudomonas aeruginosa UTI #SALOME #Hx of hypertension #Hx of BPH Case disclosed with Attending DrTrenton Fay PGY1 Status at Discharge Overall status at discharge: patient is progressing back to baseline Time Spent with Patient Time attestation: Total time spent providing and/or coordinating discharge services:>35 min Time spent: Greater than 30 minutes Home Health Home Health Referral Orders: 03/13/25 12:11 Home Health Referral Routine Reason For Exam: IV antibiotics Home-Bound The patient must either because of illness or injury, need the aid of supportive devices such as crutches, canes, wheelchairs, and walkers; the use of special transportation; or the assistance of another person in order to leave their place of residence; OR have a condition such that leaving his or her home is medically contraindicated. In addition, the patient also meets the following criteria: patient is normally unable to leave the home and leaving home requires considerable taxing effort. Addendum to Home Health Certification Practitioner's Certification: I certify that the patient has been under my care in the hospital and the care of attending physician (see below). We had a [id number] encounter on (see date below). My clinical findings indicate that the patient is home bound per the above criteria and the Home Health Services noted in these orders are medically necessary. The primary reason for the [id number] encounter is related to the fact that the patient requires home health services. Date Certifying [id number] Physician Encounter: 03/11/25 Physician's Name who will Assume Oversight for Services: Souleymane Gan Physician's Phone No.who will Assume Oversight for Service: SENIOR [employer] WE[employer] DEVELOPER - Community Resources: Yes PT to Evaluate: Yes PT to evaluate and provide a treatmnet plan to increase patient's mobility and strength. Wound Care: No IV Therapy: Yes IV Medication: Zosyn IV Dose: 3.375 IV Frequency: Every 8 hours IV Stop Date: 03/17/25 Discontinue PICC Line Once Treatment Complete: Yes RN Safety Evaluation: Yes RN to evaluate and create a plan of care that will produce positive outcomes. Palliative Treatment: No Palliative treatment and evaluate the need for hospice. Home Health Aide - Personal Care: Yes Home Health Aide to assist with any ADL's. Exam Vital Signs Temp Pulse Resp BP Pulse Ox O2 Del Method 97.8 F 72 21 H 124/75 99 Room Air 03/14/25 12:00 03/14/25 13:00 03/14/25 13:00 03/14/25 13:00 03/14/25 13:03/14/25 13:00 Narrative Exam General: A/O x3, no acute distress, well-nourished, well-developed Eyes: PERRL, EOMI. Anicteric, vision grossly intact. Ears: No ear pain, no ear discharge, Hearing grossly intact. Nose: No nasal discharge. Mouth/Throat: Moist mucous membranes, no redness, no lesions. Neck: Neck supple, non-tender, no cervical lymphadenopathy. Lungs: Clear LUIS F to auscultation and percussion, No accessory muscle use. Cardio: Normal S1/S2, regular rhythm, no murmurs, no JVD Abdomen: Soft, non-tender, no palpable masses, peristalsis present, no guarding or rebound. Extremities: Symmetrical, no significant deformities, no peripheral edema , non-tender, peripheral pulses presents. Skin: No rashes, no lesions, warm to touch. Neuro: No focal neurological deficits. motor and sensory intact. Psych: Cooperative, appropriate mood and effect. Discharge Plan Plan Patient Disposition: Xfer Skilled Nsg Fac (SNF) Care Plan Goals: Please administer Cefepime 2 g twice daily until end of the day on 03/17/25 Please follow-up with your primary care physician within 1 week upon discharge Please follow-up with your urologist within 1 to 2 weeks upon discharge for evaluation of possibly discontinuing the Vora. Please hold your lisinopril until you follow up with your primary care physician given Acute Kidney Injury. Please continue taking all other home medications as prescribed Please come back to the ER if symptoms persist or worsen. Prescriptions/Referrals Prescriptions/Med Rec: New cefepime 2 gram recon soln 2 g IV Q12H 4 Days Continued lisinopril 10 mg tablet 10 mg PO QDAY tamsulosin [Flomax] 0.4 MG capsule,extended release 24hr 0.4 mg PO QDAY Qty: 0 finasteride 5 mg tablet 5 mg PO DAILY Patient Comments: TAKE 1 TABLET BY MOUTH DAILY Discontinued ciprofloxacin HCl [Cipro] 500 mg tablet 500 mg PO BID cefuroxime axetil 500 mg tablet 500 mg PO BID Qty: 14 0RF Patient/Caregiver Discharge Instructions Print Language: Senegalese Stand Alone Forms: Sridevi Award Info., Patient Portal Info Letter Discharge Order Discharge Orders: Discharge (Routine); Ordered 03/14/25 Ordered By: Howie Sheridan Quality Discharge Quality Measures VTE prophylaxis
--- NOTE | 2025-03-14 15:12 | PC.SS ---
SS follow up note; SS was informed that patient's sister was not able to administer IV ABX. SS met with patient and SS informed him that SS would submit for SNF. First Choice is [facility]. SS contact laureano from [facility] and she informed SS they are able to accept patient. Patient's sister will transport patient to [facility]. SS notified patient's nurse and Laureano from [facility].
--- NOTE | 2025-03-14 15:43 | PC.NURSE ---
Report given to Kate at [facility]
== END 2025-03-14 16:12 | disposition skilled nursing facility (03) | DRG 690 ==
LOC: SERX 12:58 → SERHOLD 13:00 → S3NX 14:38
PROVIDERS: Admitting Provider Student in an Organized Health Care Education/Training Program; Emergency Provider Emergency Medicine; PCP Physician Assistant; Visit Provider Student in an Organized Health Care Education/Training Program
DX: N39.0 Urinary tract infection, site not specified (principal); N17.9 Acute kidney failure, unspecified; Z16.24 Resistance to multiple antibiotics; N40.1 Benign prostatic hyperplasia with lower urinary tract symptoms; N13.8 Other obstructive and reflux uropathy; R33.8 Other retention of urine; B96.5 Pseudomonas (aeruginosa) (mallei) (pseudomallei) as the cause of diseases classified elsewhere; I12.9 Hypertensive chronic kidney disease with stage 1 through stage 4 chronic kidney disease, or unspecified chronic kidney disease; N18.9 Chronic kidney disease, unspecified; Z79.899 Other long term (current) drug therapy
CPT/HCPCS: 36415; 80048; 80053; 83735; 84132; 85025; 85610; 99285; C1894; J0692; J1642; J1650; J2543; J3490; J7030; J7050; A9270

== ENCOUNTER → 2025-03-22 | Outpatient (CLI) | payer MEDICARE, MEDICAID, SELFPAY ==
[2025-03-22 14:47] LABS: Collection Type, Urine Clean Catch; Squamous Epithelial Cell,Urine 0 /hpf (0-5)
[2025-03-22 16:57] LABS: Bilirubin,Urine Negative (Negative); Blood,Urine Trace (Negative); Clarity,Urine Clear (Clear/Hazy); Color,Urine Lt-Yellow (Lt Yel-Yel); Glucose, Urine Negative (Negative); Ketones,Urine Negative (Negative); Leukocyte Esterase,Urine Positive (Negative); Nitrite,Urine Negative (Negative); PH,Urine 5.5 (5.0-7.0); Protein,Urine Negative (Neg - Trace); RBC,Urine 2 /hpf (0-3); Specific Gravity,Urine 1.017 (1.001-1.035); Urobilinogen,Urine Negative mg/dL (0.0-1.0); WBC,Urine < 1 /hpf (0-5)
== END | disposition home or self-care (01) ==
LOC: SLDO 14:38
PROVIDERS: Referring Provider Surgery; Visit Provider Surgery
DX: N41.9 Inflammatory disease of prostate, unspecified (principal)
CPT/HCPCS: 81001; 87086

== ENCOUNTER 2025-05-02 10:42 | Inpatient (IN) | payer MEDICARE, MEDICAID, SELFPAY ==
[2025-05-02 10:43] VITALS: BMI 26.4
[2025-05-02 10:47] VITALS: BMI 23.3
[2025-05-02 10:49] VITALS: BP 103/62; PULSE 110; RESP 18; TEMP 36.8; O2SAT 97
--- NOTE | 2025-05-02 10:58 | XR_ITS ---
Examination: CT abdomen and pelvis without contrast. Coronal 3-D reconstructions. Sagittal 2-D reconstructions. Date and time of exam:May 02, 2025 1155 hours Comparison May 24, 2024 INDICATIONS: Lower abdominal pain with urinary retention today, history complex septated cystic lesion left kidney 5 x [address] study May 24, 2024 CTDI: vol (mGy): 7.41 DLP: (mGycm): 485 Technique: Axial images of the abdomen have been obtained, 3 mm slice thickness Intravenous contrast material has not been administered. Low dose protocols were performed. One or more of the following dose reduction techniques were used; automated exposure control, adjustment of the mA and/or KV according to patient size, use of iterative reconstruction technique. Findings: No focal liver or splenic lesion No gallstones No pancreatic or adrenal mass Significant renal parenchymal scar formation Enlarging complex partially cystic mass left kidney, now measuring 9.5 cm in dimension with dilated left ureter This appearance may relate to hydronephrosis of the left upper pole renal moiety No ureteral calculi Aorta normal size Normal appendix No bowel obstruction No diverticulitis Marked abnormal thickening of the urinary bladder measuring up to 20 mm Significant prostatomegaly, AP dimension 4.6 cm IMPRESSION: Enlarging complex partially cystic mass upper left kidney versus 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
--- NOTE | 2025-05-02 10:58 | PD.EDRME ---
Rapid Medical Screening Exam RME Arrival date/time: 05/02/25 10:42 69-year-old male who reports that he self caths on a daily basis presents with concerns for inability to produce any urine today patient reports that he feels a fullness without being able to urinate Chief Complaint: General Adult/Misc Complain Time Seen by Provider: 05/02/25 10:57 Vital signs: Vital Signs Temperature 98.3 F 05/02/25 10:49 Pulse Rate 110 H 05/02/25 10:49 Respiratory Rate 18 05/02/25 10:49 Blood Pressure 103/62 05/02/25 10:49 Pulse Oximetry (%) 97 05/02/25 10:49 Oxygen Delivery Method Room Air 05/02/25 10:49
[2025-05-02 11:24] LABS: Collection Type, Urine Clean Catch; Squamous Epithelial Cell,Urine 0 /hpf (0-5)
[2025-05-02 11:46] LABS: Basophils % (Auto) 0 % (0-2.5); Eosinophils % (Auto) 0 % (0-10); Hematocrit 42.5 % (41.0-53.0); Hemoglobin 14.7 g/dL (13.5-16.0); Immature Granulocytes % (Auto) 0 % (0-0); Immature Granulocytes Auto 0.03 Thou/mm3 (0.00-0.00); Lymphocytes # (Auto) 0.5 Thou/mm3 (1.0-4.8); Lymphocytes % (Auto) 5 % (10-50); Mean Corpuscular HGB Conc 34.6 g/dl (31.0-37.0); Mean Corpuscular Hemoglobin 30.6 pg (25.0-35.0); Mean Corpuscular Volume 89 fL (80-100); Monocytes # (Auto) 1.6 Thou/mm3 (0.0-0.8); Monocytes % (Auto) 15 % (0-12); Neutrophils % (Auto) 79 % (37-80); Nucleated Red Blood Cell % 0 /100 WBC (0); Platelet Count 161 Thou/mm3 (140-440); RDW Standard Deviation 43.6 fL (35.1-43.9); White Blood Count 10.1 Thou/mm3 (3.8-10.6)
[2025-05-02 11:53] LABS: Bacteria,Urine 2+; Bilirubin,Urine Negative (Negative); Blood,Urine 3+ (Negative); Glucose, Urine Negative (Negative); Ketones,Urine Negative (Negative); Leukocyte Esterase,Urine Positive (Negative); Nitrite,Urine Negative (Negative); PH,Urine 6.5 (5.0-7.0); Protein,Urine 3+ (Neg - Trace); RBC,Urine 898 /hpf (0-3); Specific Gravity,Urine 1.018 (1.001-1.035); Urobilinogen,Urine Negative mg/dL (0.0-1.0); WBC,Urine 2703 /hpf (0-5)
[2025-05-02 11:59] LABS: Alanine Aminotransferase 26 U/L (10-49); Albumin, Serum 4.5 gm/dL (3.4-4.8); Albumin/Globulin Ratio 1.7 (1.2-2.2); Alkaline Phosphatase 64 U/L (46-116); Anion Gap 9 (7-16); Aspartate Amino Transferase 22 U/L (0-34); BUN/Creatinine Ratio 8 Ratio (12-20); Blood Urea Nitrogen 12 mg/dL (9-23); Calcium 9.2 mg/dL (8.3-10.6); Calcium (Corrected) 9.2 mg/dL (8.5-10.1); Carbon Dioxide 24.3 mMol/L (20.0-31.0); Chloride 103 mMol/L (98-107); Creatinine (Component) 1.5 mg/dL (0.6-1.3); Globulin 2.6 gm/dL (2.3-3.5); Glucose 145 mg/dL (74-106); Osmolality,Calculated 274 (275-295); Potassium 4.4 mMol/L (3.4-5.1); Sodium 136 mMol/L (136-145); Total Protein 7.1 gm/dL (5.7-8.2); eGFR 49 See Note
[2025-05-02 12:08] LABS: Clarity,Urine Cloudy (Clear/Hazy); Color,Urine Lt Yellow (Lt Yel-Yel); Culture Indicated,Urine Yes
[2025-05-02 12:45] VITALS: BP 98/62; PULSE 100; RESP 16; TEMP 37.3; O2SAT 96
[2025-05-02] MEDS: PIPER/TAZO 3.375 GM PREMIX 3.375 GM/50 ML BAG IV ×2 (13:57→22:05)
[2025-05-02] MEDS: CEFEPIME INJ 1 GM in SODIUM CHLORIDE 0.9% (Popper) 50 ML IV (14:40)
[2025-05-02 14:45] VITALS: BP 126/71; PULSE 88; RESP 12; O2SAT 97
[2025-05-02 15:59] VITALS: BP 131/71; PULSE 87; RESP 18; TEMP 37.7; O2SAT 99
--- NOTE | 2025-05-02 16:10 | PD.EDADULT ---
ED General RME/HPI General Chief complaint: General Adult/Misc Complain Stated complaint: SELF CATHING; DID NOT GET ANY URINE THIS AM. Time Seen by Provider: 05/02/25 10:57 Arrival date/time: 05/02/25 10:42 Limitations: no limitations RME / HPI RME / HPI narrative: Patient is a 69-year-old male with a history of a left cystic mass at his kidney. He also has a history of BPH. Patient was admitted here last month for a UTI that had significant antibiotic resistance. He grew Pseudomonas aeruginosa. IV antibiotics had to be used and he was eventually discharged to a assisted living facility for further treatment. He is back here today with 1 to 2-day history of frequent dysuria and feels like his bladder is full Related Data Home Medications ?Medication ?Instructions ?Recorded ?Confirmed tamsulosin 0.4 mg capsule (Flomax) 0.4 mg PO QDAY ##0 09/20/17 05/02/25 lisinopril 10 mg tablet 10 mg PO QDAY 02/14/21 02/20/25 finasteride 5 mg tablet 5 mg PO DAILY 02/20/25 05/02/25 Allergies Allergy/AdvReac Type Severity Reaction Status Date / Time No Known Allergies Allergy Verified 03/09/25 10:50 Review of Systems Review of Systems Systems Reviewed: All systems reviewed, normal except as documented ED Exam General Limitations: Present no limitations General appearance: Present alert and in no apparent distress Head Head exam: Present atraumatic Eye Eye exam: Present normal appearance, PERRL and EOMI ENT ENT exam: Present normal exam, normal oropharynx and mucous membranes moist Neck Neck exam: Present normal inspection, full ROM and trachea midline Chest Chest inspection: Present normal inspection and symmetric chest wall rise Respiratory Respiratory exam: Present normal lung sounds bilaterally Cardiovascular Cardiovascular exam: Present regular rate, normal rhythm and normal heart sounds Abdominal Exam Abdominal exam: Present soft and normal bowel sounds Extremities Exam Extremities exam: Present normal inspection and full ROM Back Exam Back exam: Present normal inspection and full ROM Neurological Exam Neurological exam: Present alert and oriented X3 Psychiatric Psychiatric exam: Present normal affect and normal mood Skin Skin exam: Present warm, dry, intact and normal color Course Quality Measures none Orders Category Date Time Status Bladder Scan NEEDED Care 05/02/25 12:[address] abdomen pelvis wo con Stat Exams 05/02/25 10:58 Completed CBC Stat Lab 05/02/25 11:30 Completed Comprehensive Metabolic Panel Stat Lab 05/02/25 11:30 Completed UA, C/S IF [Urinalysis, C/S if Indicated] Stat Lab 05/02/25 11:15 Completed Urine Culture Stat Lab 05/02/25 11:15 Received Cefepime Inj [Maxipime Inj] 1 gm Med 05/02/25 12:56 Discontinued SODIUM CHLORIDE 0.9% (Popper) [Ns 0.9% (P)] 50 ml IV X1 Piper/Tazo 3.375 gm Premix [Zosyn] Med 05/02/25 18:00 Discontinued 3.375 gm in 50 ml IV Q6HR Piper/Tazo 3.375 gm Premix [Zosyn] Med 05/02/25 22:00 Active 3.375 gm in 50 ml IV Q8HR Piper/Tazo 3.375 gm Premix [Zosyn] Med 05/02/25 13:00 Discontinued 3.375 gm in 50 ml IV X1 Vital Signs Vital signs: Vital Signs Temperature 98.3 F 05/02/25 10:49 Pulse Rate 110 H 05/02/25 10:49 Respiratory Rate 18 05/02/25 10:49 Blood Pressure 103/62 05/02/25 10:49 Pulse Oximetry (%) 97 05/02/25 10:49 Oxygen Delivery Method Room Air 05/02/25 10:49 Discharge Plan Plan Patient Disposition: Admit Acute Care w/in Hospital Patient condition on transfer: Stable Problem List Clinical Impression: Acute UTI, BPH without urinary obstruction, Kidney mass MDM Narrative MDM hospital course: Patient is a 69-year-old male with a history of a left cystic mass at his kidney. He also has a history of BPH. Patient was admitted here last month for a UTI that had significant antibiotic resistance. He grew Pseudomonas aeruginosa. IV antibiotics had to be used and he was eventually discharged to a assisted living facility for further treatment. He is back here today with 1 to 2-day history of frequent dysuria and feels like his bladder is full. Workup revealed no outlet obstruction however he does have a significant UTI. Given his history, I do believe hospital admission is warranted. Case was discussed with our hospitalist who agrees to accept the patient. Case discussed with attending ER physician. Medication Administration(s) Medication Administration History Acetaminophen (Acetaminophen 325 Mg Tablet) 650 mg PO Q6H PRN PRN Reason: PAIN 1-3 OR FEVER > 100.4 Stop: 06/01/25 16:07 Hydrocodone Bitart/Acetaminophen (Hydrocodone/Apap 5/325 Tablet) 1 tab PO Q6HR PRN PRN Reason: PAIN SCALE 4-6 (Moderate Stop: 05/07/25 16:07 Finasteride (Finasteride 5 Mg Tablet) 5 mg PO DAILY LINN Stop: 06/02/25 08:59 Heparin Sodium (Porcine) (Heparin Sod Inj 5000 Unit/Ml Vial) 5,000 unit SC BID LINN Stop: 05/16/25 20:59 Piperacillin/Tazobactam/Dextrose (Zosyn) 3.375 gm in 50 mls @ 12.5 mls/hr IV Q8HR LINN Stop: 05/09/25 21:59 Ondansetron HCl (Ondansetron Inj 2 Mg/Ml Inj 2 Ml) 4 mg IVP Q6H PRN; Protocol PRN Reason: NAUSEA OR VOMITING Stop: 06/01/25 16:07 Tamsulosin HCl (Tamsulosin Hcl 0.4 Mg Capsule) 0.4 mg PO QDAY ON LICENSE OF [facility] Stop: 06/02/25 08:59 Discontinued Medications Cefepime HCl 1 gm/ Sodium (Chloride) 50 mls @ 100 mls/hr IV X1 ONE Stop: 05/02/25 13:25 Last Infusion: 05/02/25 15:37 Dose: Infused Documented By: Admin: 05/02/25 14:40 Dose: 100 mls/hr Documented By: JAS Piperacillin/Tazobactam/Dextrose (Zosyn) 3.375 gm in 50 mls @ 100 mls/hr IV Q6HR LINN Stop: 05/09/25 17:59 Piperacillin/Tazobactam/Dextrose (Zosyn) 3.375 gm in 50 mls @ 100 mls/hr IV X1 ONE Stop: 05/02/25 13:29 Last Infusion: 05/02/25 14:34 Dose: Infused Documented By: Admin: 05/02/25 13:57 Dose: 100 mls/hr Documented By: JAS
--- NOTE | 2025-05-02 16:14 | ESHP_ITS ---
Documentation for date of: 05/02/25 HPI History of Present Illness History of present illness: Chilango Kyle is a 69-year-old male with a past medical history of BPH, complicated UTI status post indwelling Vora, and urinary retention and self caths at home who presents with acute urinary retention since morning of 05/01. States that he self caths at home and has only been able to get minimal output and that there were no preceding symptoms prior to yesterday morning. However, he has since endorsed a burning sensation in genitourinary region, cloudy urine, as well as suprapubic tenderness. Denies any fever, chills, nausea, vomiting, or gross hematuria. Of note, he underwent ultrasound-guided prostatic needle biopsy on that initially went uncomplicated but that night patient had acute urinary retention for which a Vora was placed. Since then, patient has had Vora's placed and removed on and off and although he had difficulty urinating prior, he states that it has been more difficult since the procedure. Additionally, he was admitted on 03/11 for Pseudomonas UTI for which she was eventually discharged with a PICC line for IV antibiotics as well as a Vora but is since been taken out and has been self catheterizing since. In ED, other than HR 110 other vital signs stable. CBC showed no leukocytosis, but CHEM panel did show creatinine 1.5 and GFR of 49. UA showed cloudy urine, 3+ protein, 3+ blood, 900 RBC, 2700 WBC, 2+ bacteria, LE positive. CT A/P showed an enlarging, complex and partially cystic mass in the left upper kidney, suspicion for left mild nephritis and severe cystitis, and significant prostatomegaly. PMHx: BPH, complicated UTI Medications: Finasteride, tamsulosin, bethanechol SHx: Denies smoking, alcohol consumption, illicit drug use PSHx: Ultrasound-guided prostatic needle biopsy on Review of Systems Review of Systems Systems Reviewed: All systems reviewed, normal except as documented Exam Vital Signs Temp Pulse Resp BP Pulse Ox O2 Del Method 99.8 F 87 18 131/71 H 99 Room Air 05/02/25 15:59 05/02/25 15:59 05/02/25 15:59 05/02/25 15:59 05/02/25 15:59 05/02/25 15:59 Narrative Exam General: AOx3, pleasant, no acute distress, able to speak full sentences HEENT: NC/AT, mucous membranes moist, bilateral sclera anicteric Cardiovascular: regular rate and rhythm, S1/S2 present, no murmurs appreciated Pulmonary: clear to auscultation bilaterally, no rales/rhonchi/wheezes Abdominal: suprapubic tenderness, LUQ tenderness, soft, non-tender, non- distended, no rebound/guarding, normal bowel sounds present Musculoskeletal: left-sided CVA tenderness, normal ROM, no peripheral edema Skin: warm and dry, intact, no rashes Neuro: CN II-XII intact, no focal deficits Results: Labs 05/03/25 05:15 05/03/25 05:15 Labs: Short CBC 05/02/25 Range/Units 11:30 WBC 10.1 (3.8-10.6) Thou/mm3 Hgb 14.7 (13.5-16.0) g/dL Hct 42.5 (41.0-53.0) % Plt Count 161 (140-440) Thou/mm3 BMP 05/02/25 11:30 Sodium 136 Potassium 4.4 Chloride 103 Carbon Dioxide 24.3 BUN 12 Creatinine 1.5 H Glucose 145 H Calcium 9.2 Liver Function 05/02/25 Range/Units 11:30 Total Bilirubin 1.0 (0.3-1.2) mg/dL AST 22 (0-34) U/L ALT 26 (10-49) U/L Alkaline Phosphatase 64 (46-116) U/L Albumin 4.5 (3.4-4.8) gm/dL Urine 05/02/25 Range/Units 11:15 Urine Color Lt Yellow (Lt Yel-Yel) Urine Clarity Cloudy A (Clear/Hazy) Urine pH 6.5 (5.0-7.0) Ur Specific [place] 1.018 (1.001-1.035) Urine Protein 3+ A (Neg - Trace) Urine Glucose (UA) Negative (Negative) Quality Measures Quality Measures VTE prophylaxis Advance care planning discussed with:: patient Medications Home Medications and Allergies Home Medications ?Medication ?Instructions ?Recorded ?Confirmed ?Type tamsulosin 0.4 mg capsule (Flomax) 0.4 mg PO BID ##0 1 11/20/16 05/02/25 History finasteride 5 mg tablet 5 mg PO DAILY 02/20/2505/02 History bethanechol chloride 25 mg tablet 25 mg PO TID 5 05/02/25 History Allergies Allergy/AdvReac Type Severity Reaction Status Date / Time No Known Allergies Allergy Verified 03/09/25 10:50 Visit Medications Acetaminophen (Acetaminophen 325 Mg Tablet) 650 mg PO Q6H PRN PRN Reason: PAIN 1-3 OR FEVER > 100.4 Stop: 06/01/25 16:07 Hydrocodone Bitart/Acetaminophen (Hydrocodone/Apap 5/325 Tablet) 1 tab PO Q6HR PRN PRN Reason: PAIN SCALE 4-6 (Moderate Stop: 05/07/25 16:07 Finasteride (Finasteride 5 Mg Tablet) 5 mg PO DAILY LINN Stop: 06/02/25 08:59 Heparin Sodium (Porcine) (Heparin Sod Inj 5000 Unit/Ml Vial) 5,000 unit SC BID LINN Stop: 05/16/25 20:59 Piperacillin/Tazobactam/Dextrose (Zosyn) 3.375 gm in 50 mls @ 12.5 mls/hr IV Q8HR LINN Stop: 05/09/25 21:59 Ondansetron HCl (Ondansetron Inj 2 Mg/Ml Inj 2 Ml) 4 mg IVP Q6H PRN; Protocol PRN Reason: NAUSEA OR VOMITING Stop: 06/01/25 16:07 Tamsulosin HCl (Tamsulosin Hcl 0.4 Mg Capsule) 0.4 mg PO QDAY LINN Stop: 06/02/25 08:59 Discontinued Medications Cefepime HCl 1 gm/ Sodium (Chloride) 50 mls @ 100 mls/hr IV X1 ONE Stop: 05/02/25 13:25 Last Infusion: 05/02/25 15:37 Dose: Infused Piperacillin/Tazobactam/Dextrose (Zosyn) 3.375 gm in 50 mls @ 100 mls/hr IV Q6HR LINN Stop: 05/09/25 17:59 Piperacillin/Tazobactam/Dextrose (Zosyn) 3.375 gm in 50 mls @ 100 mls/hr IV X1 ONE Stop: 05/02/25 13:29 Last Infusion: 05/02/25 14:34 Dose: Infused Assessment & Plan Plan Chilango Kyle is a 69-year-old male with a past medical history of BPH, complicated UTI status post indwelling Vora, and urinary retention and self caths at home who presents with acute urinary retention since morning of 05/01 and admitted for the same in addition to UTI. #Acute urinary retention #Complicated UTI in setting of self-catheterization and previous chronic indwelling Vora Presents with 1 to 2 days of decreased output when doing self caths and associated cloudy urine and burning sensation. No fever, chills, sweats. Afebrile on presentation and no leukocytosis. History of Pseudomonas UTI on 03/2025 for which patient was discharged with PICC line and IV antibiotics as well as chronic indwelling Vora at that time. CT A/P showed significant renal parenchymal scar formation, marked thickening of urinary bladder with suspicion for mild left-sided nephritis, and significant prostatomegaly. UA showed cloudy urine, 3+ protein, 3+ blood, 900 RBC, 2700 WBC, 2+ bacteria, LE positive. ? Zosyn (05/02-) ? Urine culture 05/02: Pending ? Vora placed, strict I's and O's ? Bladder scan as needed ? Finasteride 5 mg p.o. daily ? Tamsulosin 0.4 mg p.o. daily #Acute kidney injury vs chronic kidney disease, postrenal Presents with creatinine of 1.5, likely new baseline but no consistent data over last 3 months so unable to clearly define CKD. However, kidney injury likely postrenal given history of BPH and urinary retention. ? Vora as above ? Finasteride and tamsulosin as above ? Avoid nephrotoxic agent when possible and renally dose medications #Complex left-sided renal mass Enlarging, complex and partially cystic mass in upper left kidney seen on imaging ? Recommend to continue follow-up outpatient #BPH status post biopsy 02/21/2025 Biopsy report showed benign prostate tissue. ? Finasteride and tamsulosin as above Hospital management: Disposition: IV antibiotics, urine culture Fluids: None Diet: Regular Lines: PIV DVT prophylaxis: Heparin SC BID GI prophylaxis: Not indicated Vora: Placed CODE STATUS: full code ----- Plan discussed with attending physician Dr. Dulce Sheridan MD PGY-1 Internal Medicine Attending Provider Attestation/Addendum I have examined the patient, reviewed labs and imaging findings, discussed the case with the resident(s), and reviewed entered orders. I agree with the plan of care as outlined in this note, with these additional summaries/recommendations: After examination of the patient and review of the clinical data, I feel that this patient needs admission to the hospital for further treatment and evaluation. Patient is a 69-year-old male with a medical history BPH, urinary retention, primary hypertension, and left renal mass presents to [facility] on 05/02/2025 with chief complaint of inability to produce urine & dysuria. Patient seen at bedside. He reports he normally straight caths at home although over the last 48 hours he was not having any urinary output. He also thinks he has had some dysuria. Patient diagnosed with acute on chronic urinary retention. Vora catheter placed at bedside and noted to be draining 200 to 300 cc immediately. We will continue BPH medicines and Vora catheter. Ultimately patient will likely need to follow-up outpatient with urology for possible TURP evaluation. Patient also diagnosed with complicated urinary tract infection. Urinalysis significant for leukocyte esterase positive, RBC 898, WBC 12/16/2002, and bacteria 4+. Urine culture taken and follow-up results when available. Patient will remain hospitalized for IV antibiotics as previous culture grew Pseudomonas only sensitive to IV medicines and patient actually required a PICC line on last admission. CT abdomen and pelvis also showed enlarged mass upper left kidney which is now 9.5 cm in dimension. Patient is aware of renal mass. He has had discussions with urology about nephrectomy in the past although unclear what this led to. He does report he is pending referral to nephrology for renal mass although unclear why patient was referred to nephrology for renal mass. Encouraged patient to follow-up with urology given that mass is enlarging and has complex features concerning for malignancy. We will attempt to contact patient's urologist Dr. Negro to obtain more history. continue IV antibiotics and pain management. Continue home BPH medicines. Patient updated on the plan and in agreement. All questions answered satisfaction. Please see residents note for additional details of management. Dr. Dulce MD
[2025-05-02 18:40] VITALS: BP 133/71; PULSE 95; RESP 18; TEMP 37; O2SAT 97
--- NOTE | 2025-05-02 19:34 | PC.NURSE ---
report giveen to Aftab BEARD
[2025-05-02 20:00] VITALS: BP 115/69; PULSE 93; RESP 19; TEMP 36.4; O2SAT 95; BMI 23.7
[2025-05-02] MEDS: TAMSULOSIN HCL 0.4 MG CAPSULE PO (22:05)
[2025-05-03] VITALS: BP 121/74; PULSE 74; RESP 16; TEMP 36.6; O2SAT 97
[2025-05-03 04:00] VITALS: BP 109/72; PULSE 81; RESP 16; TEMP 36.6; O2SAT 93
[2025-05-03] MEDS: PIPER/TAZO 3.375 GM PREMIX 3.375 GM/50 ML BAG IV ×3 (05:34→21:06)
[2025-05-03 05:49] LABS: Basophils % (Auto) 0 % (0-2.5); Eosinophils % (Auto) 1 % (0-10); Hematocrit 40.3 % (41.0-53.0); Hemoglobin 13.8 g/dL (13.5-16.0); Immature Granulocytes % (Auto) 0 % (0-0); Immature Granulocytes Auto 0.03 Thou/mm3 (0.00-0.00); Lymphocytes # (Auto) 0.8 Thou/mm3 (1.0-4.8); Lymphocytes % (Auto) 10 % (10-50); Mean Corpuscular HGB Conc 34.2 g/dl (31.0-37.0); Mean Corpuscular Hemoglobin 31.2 pg (25.0-35.0); Mean Corpuscular Volume 91 fL (80-100); Monocytes % (Auto) 25 % (0-12); Neutrophils # (Auto) 5.3 Thou/mm3 (1.8-7.7); Neutrophils % (Auto) 64 % (37-80); Nucleated Red Blood Cell % 0 /100 WBC (0); Platelet Count 145 Thou/mm3 (140-440); RDW Standard Deviation 43.9 fL (35.1-43.9); Red Blood Count 4.42 Miln/mm3 (4.50-5.90); White Blood Count 8.3 Thou/mm3 (3.8-10.6)
[2025-05-03 05:55] LABS: INR 1.1 (0.9-1.3); Prothrombin Time 11.9 Seconds (9.0-12.2)
[2025-05-03 06:31] LABS: Anion Gap 7 (7-16); BUN/Creatinine Ratio 11 Ratio (12-20); Blood Urea Nitrogen 16 mg/dL (9-23); Calcium 8.9 mg/dL (8.3-10.6); Carbon Dioxide 24.5 mMol/L (20.0-31.0); Chloride 106 mMol/L (98-107); Creatinine (Component) 1.4 mg/dL (0.6-1.3); Estimated Creatinine Clearance 53.1 mL/min (>60); Glucose 110 mg/dL (74-106); Osmolality,Calculated 276 (275-295); Phosphorous 2.6 mg/dL (2.4-5.1); Potassium 4.5 mMol/L (3.4-5.1); Sodium 137 mMol/L (136-145); eGFR 54 See Note
[2025-05-03 07:53] VITALS: BP 116/72; PULSE 74; RESP 17; TEMP 36.2; O2SAT 96
[2025-05-03] MEDS: FINASTERIDE 5 MG TABLET PO (08:59)
[2025-05-03] MEDS: TAMSULOSIN HCL 0.4 MG CAPSULE PO ×2 (08:59→21:06)
--- NOTE | 2025-05-03 10:41 | PD.RESPRO ---
Documentation for date of: 05/03/25 Subjective Subjective Interval history: No acute overnight events. Seen and examined at bedside and patient states that his dysuria has improved compared to yesterday but is still present. Vora was placed without significant difficulty and draining significant output, continues to be cloudy. Attempted to reach urologist, Dr. Negro, unable to reach. Anticipate that patient will likely have to be discharged with Vora in place in order to prevent urinary retention and have close follow-up outpatient with urology. Otherwise, we will continue to follow blood cultures and remain on Zosyn given previous culture growing Pseudomonas. Remains afebrile and without leukocytosis, SALOME slowly resolving and otherwise CHEM panel unremarkable. Exam Vital Signs Temp Pulse Resp BP Pulse Ox O2 Del Method 97.2 F 74 17 116/72 96 Room Air 05/03/25 07:53 05/03/25 07:53 05/03/25 07:53 05/03/25 07:53 05/03/25 07:53 05/03/25 07:53 Narrative Exam General: AOx3, pleasant, no acute distress, able to speak full sentences HEENT: NC/AT, mucous membranes moist, bilateral sclera anicteric Cardiovascular: regular rate and rhythm, S1/S2 present, no murmurs appreciated Pulmonary: clear to auscultation bilaterally, no rales/rhonchi/wheezes Abdominal: suprapubic tenderness, non-tender, non-distended, no rebound/guarding, normal bowel sounds present Musculoskeletal: normal ROM, no peripheral edema Genitourinary: Vora in place draining significant amount of cloudy yellow urine Skin: warm and dry, intact, no rashes Neuro: CN II-XII intact, no focal deficits Objective Labs 05/04/25 05:15 05/04/25 05:15 Labs: Laboratory Results - last 24 hr 05/02/25 05/02/25 05/03/25 11:15 11:30 05:15 WBC 10.1 8.3 RBC 4.80 4.42 L Hgb 14.7 13.8 Hct 42.5 40.3 L MCV 89 91 MCH 30.6 31.2 MCHC 34.6 34.2 RDW Std Deviation 43.6 43.9 Plt Count 161 145 Neut % (Auto) 79 64 Lymph % (Auto) 5 L 10 [place] % (Auto) 15 H 25 H Eos % (Auto) 0 1 Baso % (Auto) 0 0 Neut # (Auto) 8.0 H 5.3 Lymph # (Auto) 0.5 L 0.8 L [place] # (Auto) 1.6 H 2.0 H Eos # (Auto) 0.0 0.0 Baso # (Auto) 0.0 0.0 Immature Gran # (Auto) 0.03 H 0.03 H Absolute Nucleated RBC 0.00 0.00 Immature Gran % 0 0 Nucleated RBC % 0 0 PT 11.9 INR 1.1 Sodium 136 137 Potassium 4.4 4.5 Chloride 103 106 Carbon Dioxide 24.3 24.5 Anion Gap 9 7 BUN 12 16 Creatinine 1.5 H 1.4 H Estim Creat Clear Calc 51.0 L 53.1 L eGFR 49 L 54 L BUN/Creatinine Ratio 8 L 11 L Glucose 145 H 110 H Calculated Osmolality 274 L 276 Calcium 9.2 8.9 Corrected Calcium 9.2 Phosphorus 2.6 Total Bilirubin 1.0 AST 22 ALT 26 Alkaline Phosphatase 64 Total Protein 7.1 Albumin 4.5 Globulin 2.6 Albumin/Globulin Ratio 1.7 Ur Collection Type Clean Catch Urine Color Lt Yellow Urine Clarity Cloudy A Urine pH 6.5 Ur Specific [place] 1.018 Urine Protein 3+ A Urine Glucose (UA) Negative Urine Ketones Negative Urine Blood 3+ A Urine Nitrite Negative Urine Bilirubin Negative Urine Urobilinogen (Auto) Negative Ur Leukocyte Esterase Positive Urine RBC 898 H Urine WBC 2703 H Ur Squamous Epith Cells 0 Urine Bacteria 2+ A Ur Culture Indicated? Yes Quality Measures Quality Measures VTE prophylaxis Advance care planning discussed with:: patient Assessment & Plan Assessment Current Active Medications: Generic Name Dose Route Start Last Admin Trade Name Freq PRN Reason Stop Dose Admin Acetaminophen 650 mg 05/02/25 16:08 Acetaminophen 325 Mg Tablet PO 06/01/25 16:07 Q6H PRN PAIN 1-3 OR FEVER > 100.4 Hydrocodone Bitart/Acetaminophen 1 tab 05/02/25 16:08 Hydrocodone/Apap 5/325 Tablet PO 05/07/25 16:07 Q6HR PRN PAIN SCALE 4-6 (Moderate Finasteride 5 mg 05/03/25 09:00 05/03/25 08:59 Finasteride 5 Mg Tablet PO 06/02/25 08:59 5 mg DAILY LINN Administration Heparin Sodium (Porcine) 5,000 unit 05/02/25 21:00 05/03/25 09:01 Heparin Sod Inj 5000 Unit/Ml Vial SC 05/16/25 20:59 Not Given BID LINN Piperacillin/Tazobactam/Dextrose 3.375 gm in 50 mls @ 12.5 mls/hr 05/02/25 22:00 05/03/25 05:34 Zosyn IV 05/09/25 21:59 12.5 mls/hr Q8HR LINN Administration Ondansetron HCl 4 mg 05/02/25 16:08 Ondansetron Inj 2 Mg/Ml Inj 2 Ml IVP 06/01/25 16:07 Q6H PRN NAUSEA OR VOMITING Protocol Tamsulosin HCl 0.4 mg 05/02/25 21:00 05/03/25 08:59 Tamsulosin Hcl 0.4 Mg Capsule PO 06/01/25 20:59 0.4 mg BID LINN Administration Plan Chilango Kyle is a 69-year-old male with a past medical history of BPH, complicated UTI status post indwelling Vora, and urinary retention and self caths at home who presents with acute urinary retention since morning of 05/01 and admitted for the same in addition to UTI. #Acute urinary retention, improving #Complicated UTI in setting of self-catheterization and previous chronic indwelling Vora Presents with 1 to 2 days of decreased output when doing self caths and associated cloudy urine and burning sensation. No fever, chills, sweats. Afebrile on presentation and no leukocytosis. History of Pseudomonas UTI on 03/2025 for which patient was discharged with PICC line and IV antibiotics as well as chronic indwelling Vora at that time. CT A/P showed significant renal parenchymal scar formation, marked thickening of urinary bladder with suspicion for mild left-sided nephritis, and significant prostatomegaly. UA showed cloudy urine, 3+ protein, 3+ blood, 900 RBC, 2700 WBC, 2+ bacteria, LE positive. ? Zosyn (05/02-) ? Urine culture 05/02: Pending ? Vora placed, strict I's and O's ? Bladder scan as needed ? Finasteride 5 mg p.o. daily ? Tamsulosin 0.4 mg p.o. daily #Acute kidney injury vs chronic kidney disease, postrenal, improving Presents with creatinine of 1.5, likely new baseline but no consistent data over last 3 months so unable to clearly define CKD. However, kidney injury likely postrenal given history of BPH and urinary retention. ? Vora as above ? Finasteride and tamsulosin as above ? Avoid nephrotoxic agent when possible and renally dose medications #Complex left-sided renal mass Enlarging, complex and partially cystic mass in upper left kidney seen on imaging ? Recommend to continue follow-up outpatient #BPH status post biopsy 02/21/2025 Biopsy report showed benign prostate tissue. ? Finasteride and tamsulosin as above Hospital management: Disposition: IV antibiotics, urine culture Fluids: None Diet: Regular Lines: PIV DVT prophylaxis: Heparin SC BID GI prophylaxis: Not indicated Vora: Placed CODE STATUS: full code ----- Plan discussed with attending physician Dr. Dulce Sheridan MD PGY-1 Internal Medicine Attending Provider Attestation/Addendum I have examined the patient, reviewed labs and imaging findings, discussed the case with the resident(s), and reviewed entered orders. I agree with the plan of care as outlined in this note, with these additional summaries/recommendations: Patient is a 69-year-old male with a medical history BPH, urinary retention, primary hypertension, and left renal mass presents to [facility] on 05/02/2025 with chief complaint of inability to produce urine & dysuria. Patient seen at bedside. No acute overnight events. Vora catheter placed at bedside and noted to be draining well. We will continue BPH medicines and Vora catheter. Ultimately patient will likely need to follow-up outpatient with urology for possible TURP evaluation. Patient also diagnosed with complicated urinary tract infection. Urinalysis significant for leukocyte esterase positive, RBC 898, WBC 2703, and bacteria 4+. Urine culture taken and follow-up results when available. Patient will remain hospitalized for IV antibiotics as previous culture grew Pseudomonas only sensitive to IV medicines and patient actually required a PICC line on last admission. CT abdomen and pelvis also showed enlarged mass upper left kidney which is now 9.5 cm in dimension. Patient is aware of renal mass. He has had discussions with urology about nephrectomy in the past although unclear what this led to. Encouraged patient to follow-up with urology given that mass is enlarging and has complex features concerning for malignancy. We will attempt to contact patient's urologist Dr. Negro to obtain more history. continue IV antibiotics and pain management. Continue home BPH medicines. Patient updated on the plan and in agreement. All questions answered satisfaction. Please see residents note for additional details of management. Dr. Dulce MD
[2025-05-03 12:00] VITALS: BP 110/62; PULSE 89; RESP 18; TEMP 36.2; O2SAT 95
[2025-05-03 12:44] LABS: Path Review Blood Smear Sent to Pathologist
--- NOTE | 2025-05-03 15:27 | CHAP ---
Patient was visited by a Spiritual Care Volunteer on 05/03/2025 between 0900 and 1015 and received comfort, encouragement and/or prayer.
--- NOTE | 2025-05-03 15:52 | CHAP ---
Patient asked for a visit and shared with me what he was going through. I gave some words of encouragement and prayer.
[2025-05-03 16:00] VITALS: BP 117/76; PULSE 83; RESP 17; TEMP 36.3; O2SAT 96
--- NOTE | 2025-05-03 16:20 | PC.SS ---
Rounding note: treating for UTI. Pending urine cultures.
[2025-05-03 19:59] VITALS: BP 124/74; PULSE 82; RESP 20; TEMP 36.7; O2SAT 95
[2025-05-04] VITALS: BP 123/78; PULSE 70; RESP 17; TEMP 36.3; O2SAT 96
[2025-05-04 04:00] VITALS: BP 119/77; PULSE 69; RESP 19; TEMP 36.7; O2SAT 97
[2025-05-04] MEDS: PIPER/TAZO 3.375 GM PREMIX 3.375 GM/50 ML BAG IV (05:23)
[2025-05-04 06:01] LABS: Basophils % (Auto) 0 % (0-2.5); Eosinophils # (Auto) 0.2 Thou/mm3 (0.0-0.5); Eosinophils % (Auto) 2 % (0-10); Hematocrit 40.4 % (41.0-53.0); Hemoglobin 14.1 g/dL (13.5-16.0); Immature Granulocytes % (Auto) 1 % (0-0); Immature Granulocytes Auto 0.04 Thou/mm3 (0.00-0.00); Lymphocytes # (Auto) 1.1 Thou/mm3 (1.0-4.8); Lymphocytes % (Auto) 15 % (10-50); Mean Corpuscular HGB Conc 34.9 g/dl (31.0-37.0); Mean Corpuscular Hemoglobin 31.1 pg (25.0-35.0); Mean Corpuscular Volume 89 fL (80-100); Monocytes # (Auto) 1.3 Thou/mm3 (0.0-0.8); Monocytes % (Auto) 18 % (0-12); Neutrophils # (Auto) 4.6 Thou/mm3 (1.8-7.7); Neutrophils % (Auto) 64 % (37-80); Nucleated Red Blood Cell % 0 /100 WBC (0); Platelet Count 151 Thou/mm3 (140-440); RDW Standard Deviation 43.3 fL (35.1-43.9); Red Blood Count 4.53 Miln/mm3 (4.50-5.90); White Blood Count 7.3 Thou/mm3 (3.8-10.6)
[2025-05-04 06:35] LABS: Anion Gap 10 (7-16); BUN/Creatinine Ratio 12 Ratio (12-20); Blood Urea Nitrogen 17 mg/dL (9-23); Calcium 9.1 mg/dL (8.3-10.6); Chloride 105 mMol/L (98-107); Creatinine (Component) 1.4 mg/dL (0.6-1.3); Estimated Creatinine Clearance 53.1 mL/min (>60); Glucose 128 mg/dL (74-106); Osmolality,Calculated 281 (275-295); Potassium 4.7 mMol/L (3.4-5.1); Sodium 139 mMol/L (136-145); eGFR 54 See Note
[2025-05-04 08:00] VITALS: BP 125/80; PULSE 69; RESP 17; TEMP 36.1; O2SAT 98
[2025-05-04] MEDS: TAMSULOSIN HCL 0.4 MG CAPSULE PO (09:41)
[2025-05-04] MEDS: FINASTERIDE 5 MG TABLET PO (09:41)
--- NOTE | 2025-05-04 09:43 | PC.SS ---
Patient Chilango Kyle is a 69 Year old male admitted for Acute Urinary Retention Complcated UTI. SS met with patient at bedside to discuss discharge plan. Patient reports he lives at home alone. Patient reports his sister, Carmen Guo is his surrogate decision maker, [phone]. Patient reports he does not utilize any source of DME to assist with ambulation, patient is able to complete all ADL's independently. Choice of pharmacy is [facility]. At time of discharge patient would like to return back home. Sister will provide transportation. Discharge plan: Home Next of kin: SisterCarmen [phone] PCP: Souleymane Gan @ [facility].
--- NOTE | 2025-05-04 11:30 | PC.NURSE ---
DISCHARGE IS READY PT WAITING FOR HIS RIDE.
[2025-05-04 12:00] VITALS: BP 117/76; PULSE 79; RESP 16; TEMP 36.3; O2SAT 97
--- NOTE | 2025-05-04 13:16 | PD.RESPRO ---
Documentation for date of: 05/04/25 Exam Vital Signs Temp Pulse Resp BP Pulse Ox O2 Del Method 97.3 F 79 16 117/76 97 Room Air 05/04/25 12:00 05/04/25 12:00 05/04/25 12:00 05/04/25 12:00 05/04/25 12:00 05/04/25 12:00 Objective Labs 05/04/25 05:15 05/04/25 05:15 Labs: Laboratory Results - last 24 hr 05/04/25 05:15 WBC 7.3 RBC 4.53 Hgb 14.1 Hct 40.4 L MCV 89 MCH 31.1 MCHC 34.9 RDW Std Deviation 43.3 Plt Count 151 Neut % (Auto) 64 Lymph % (Auto) 15 [place] % (Auto) 18 H Eos % (Auto) 2 Baso % (Auto) 0 Neut # (Auto) 4.6 Lymph # (Auto) 1.1 [place] # (Auto) 1.3 H Eos # (Auto) 0.2 Baso # (Auto) 0.0 Immature Gran # (Auto) 0.04 H Absolute Nucleated RBC 0.00 Immature Gran % 1 H Nucleated RBC % 0 Sodium 139 Potassium 4.7 Chloride 105 Carbon Dioxide 24.0 Anion Gap 10 BUN 17 Creatinine 1.4 H Estim Creat Clear Calc 53.1 L eGFR 54 L BUN/Creatinine Ratio 12 Glucose 128 H Calculated Osmolality 281 Calcium 9.1 Quality Measures Quality Measures VTE prophylaxis Assessment & Plan Assessment Current Active Medications: Generic Name Dose Route Start Last Admin Trade Name Freq PRN Reason Stop Dose Admin Acetaminophen 650 mg 05/02/25 16:08 Acetaminophen 325 Mg Tablet PO 06/01/25 16:07 Q6H PRN PAIN 1-3 OR FEVER > 100.4 Hydrocodone Bitart/Acetaminophen 1 tab 05/02/25 16:08 Hydrocodone/Apap 5/325 Tablet PO 05/07/25 16:07 Q6HR PRN PAIN SCALE 4-6 (Moderate Finasteride 5 mg 05/03/25 09:00 05/04/25 09:41 Finasteride 5 Mg Tablet PO 06/02/25 08:59 5 mg DAILY LINN Administration Heparin Sodium (Porcine) 5,000 unit 05/02/25 21:00 05/04/25 09:41 Heparin Sod Inj 5000 Unit/Ml Vial SC 05/16/25 20:59 Not Given BID LINN Piperacillin/Tazobactam/Dextrose 3.375 gm in 50 mls @ 12.5 mls/hr 05/02/25 22:00 05/04/25 05:23 Zosyn IV 05/09/25 21:59 12.5 mls/hr Q8HR LINN Administration Ondansetron HCl 4 mg 05/02/25 16:08 Ondansetron Inj 2 Mg/Ml Inj 2 Ml IVP 06/01/25 16:07 Q6H PRN NAUSEA OR VOMITING Protocol Tamsulosin HCl 0.4 mg 05/02/25 21:00 05/04/25 09:41 Tamsulosin Hcl 0.4 Mg Capsule PO 06/01/25 20:59 0.4 mg BID LINN Administration
--- NOTE | 2025-05-04 15:28 | PD.RESDS ---
Planned Discharge Date 05/04/25 DS: Providers Provider Date of admission: 05/02/25 16:08 Primary care physician: Souleymane Gan PA-C Admitting Provider: Avelino Cardona MD Attending Provider on Admission: Avelino Cardona MD Consults: 05/02/25 20:19 Referral Wiley Routine Comment: Attending Provider on DC: Howie Sheridan MD Discharging Provider: Howie Sheridan MD DS: Diagnosis Problem List Completed Was Problem List Reviewed/Reconciled?: Yes Hospital Course Hospital Course Hospital course: Chilango Kyle is a 69-year-old male with a past medical history of BPH, complicated UTI status post indwelling Vora, and urinary retention and self caths at home who presented on 05/02 for acute urinary retention since the morning prior. He self caths at home and was only able to get minimal output, no preceding symptoms prior to that. However, there was associat burning sensation in genitourinary region, cloudy urine, and suprapubic tenderness. No fever, chills, nausea, vomiting, or gross hematuria. Given that previous cultures had grown Pseudomonas, he was started on Zosyn and urine cultures were taken. Vora was also placed and afterwards was able to start draining significant amount of output. Also started on finasteride and tamsulosin. Throughout hospital course, he continued to have good output in the Vora and SALOME had improved. Genitourinary discomfort and suprapubic tenderness also improved and cultures eventually grew pansensitive Klebsiella. Thus, patient was able to be discharged with oral antibiotics and discharged with Vora catheter in place after discussing case with Dr. Negro. Diagnoses during admission: #Acute urinary retention, improving #Complicated UTI in setting of self-catheterization and previous chronic indwelling Vora #Acute kidney injury vs chronic kidney disease, postrenal, improving #Complex left-sided renal mass #BPH status post biopsy 02/21/2025 Discharge instructions: ? Take nitrofurantoin 100 mg twice per day for 5 more days to complete your antibiotic course ? Continue taking all other home medications as prescribed ? Call and follow-up with urologist, Dr. Negro, within 1 week of discharge ? Follow-up with PCP within 1-2 weeks of discharge ? If you do not have a PCP, you can follow-up at the [facility] (you can call [phone] to make an appointment) ? If you wish to follow-up with Dr. Sheridan, schedule appointment on Thursday ? Return to ED if symptoms worsen or recur ----- Plan discussed with attending physician Dr. Dulce Sheridan MD PGY-1 Internal Medicine Time Spent with Patient Time attestation: Total time spent providing and/or coordinating discharge services: Time spent: Greater than 30 minutes Exam Vital Signs Temp Pulse Resp BP Pulse Ox O2 Del Method 97.3 F 79 16 117/76 97 Room Air 05/04/25 12:05/04/25 12:05/04/25 12:05/04/25 12:05/04/25 12:05/04/25 12:00 Narrative Exam General: AOx3, pleasant, no acute distress, able to speak full sentences HEENT: NC/AT, mucous membranes moist, bilateral sclera anicteric Cardiovascular: regular rate and rhythm, S1/S2 present, no murmurs appreciated Pulmonary: clear to auscultation bilaterally, no rales/rhonchi/wheezes Abdominal: suprapubic tenderness, non-tender, non-distended, no rebound/guarding, normal bowel sounds present Musculoskeletal: normal ROM, no peripheral edema Genitourinary: Vora in place draining significant amount of cloudy yellow urine Skin: warm and dry, intact, no rashes Neuro: CN II-XII intact, no focal deficits Discharge Plan Plan Patient Disposition: HOME (Self Care) Patient condition on transfer: Stable Care Plan Goals: ? Take nitrofurantoin 100 mg twice per day for 5 more days to complete your antibiotic course ? Continue taking all other home medications as prescribed ? Call and follow-up with urologist, Dr. Negro, within 1 week of discharge ? Follow-up with PCP within 1-2 weeks of discharge ? If you do not have a PCP, you can follow-up at the [facility] (you can call [phone] to make an appointment) ? If you wish to follow-up with Dr. Sheridan, schedule appointment on Thursday ? Return to ED if symptoms worsen or recur Prescriptions/Referrals Prescriptions/Med Rec: New nitrofurantoin macrocrystal 100 mg capsule 100 mg PO BID 5 Days Qty: 10 0RF Rx Instructions: must administer with a meal/food Continued tamsulosin [Flomax] 0.4 MG capsule,extended release 24hr 0.4 mg PO BID Qty: 0 finasteride 5 mg tablet 5 mg PO DAILY Patient Comments: TAKE 1 TABLET BY MOUTH DAILY bethanechol chloride 25 mg tablet 25 mg PO TID Patient Comments: Pt wants to stop taking Referrals: Souleymane Gan PA-C [Primary Care Provider] - Maverick Negro MD [Physician] - Patient/Caregiver Discharge Instructions Print Language: Frisian Stand Alone Forms: Sridevi Award Info., Patient Portal Info Letter Discharge Order Discharge Orders: Discharge (Routine); Ordered 05/04/25 Ordered By: Howie Sheridan Quality Discharge Quality Measures VTE prophylaxis Attestestation MD Attestation I have examined the patient, reviewed labs and imaging findings, discussed the case with the resident(s), and reviewed entered orders. I agree with the plan of care as outlined in this note. Time Spent: [address] Dulce MD
== END 2025-05-04 13:23 | disposition home or self-care (01) | DRG 699 ==
LOC: SERX 16:12 → SERHOLD 16:33 → S3SX 19:56
PROVIDERS: Nurse Practitioner Primary Care; Admitting Provider Student in an Organized Health Care Education/Training Program; Emergency Provider Family Medicine; PCP Physician Assistant; Visit Provider Student in an Organized Health Care Education/Training Program
DX: T83.518A Infection and inflammatory reaction due to other urinary catheter, initial encounter (principal); N17.9 Acute kidney failure, unspecified; N39.0 Urinary tract infection, site not specified; R33.8 Other retention of urine; N40.1 Benign prostatic hyperplasia with lower urinary tract symptoms; N28.89 Other specified disorders of kidney and ureter; I10 Essential (primary) hypertension; Y84.6 Urinary catheterization as the cause of abnormal reaction of the patient, or of later complication, without mention of misadventure at the time of the procedure
CPT/HCPCS: 36415; 74176; 80048; 80053; 81001; 84100; 85025; 85610; 87077; 87081; 87086; 87186; 96365; 96367; 99285; A4314; J0692; J2543; J7050; A9270

== ENCOUNTER → 2025-07-05 | Outpatient (CLI) | payer MEDICARE, MEDICAID, SELFPAY ==
[2025-07-05 10:18] LABS: Collection Type, Urine Clean Catch; Squamous Epithelial Cell,Urine 0 /hpf (0-5)
[2025-07-05 10:53] LABS: Bacteria,Urine 1+; Bilirubin,Urine Negative (Negative); Blood,Urine 2+ (Negative); Budding Yeast,Urine Present; Color,Urine Yellow (Lt Yel-Yel); Glucose, Urine Negative (Negative); Ketones,Urine Negative (Negative); Leukocyte Esterase,Urine Positive (Negative); Nitrite,Urine Negative (Negative); PH,Urine 6.0 (5.0-7.0); Protein,Urine 2+ (Neg - Trace); RBC,Urine 20 /hpf (0-3); Specific Gravity,Urine 1.017 (1.001-1.035); Urobilinogen,Urine Negative mg/dL (0.0-1.0); WBC,Urine 2928 /hpf (0-5)
[2025-07-05 11:03] LABS: Clarity,Urine Cloudy (Clear/Hazy)
== END | disposition home or self-care (01) ==
LOC: SLDO 10:13
PROVIDERS: Referring Provider Surgery; Visit Provider Surgery
DX: N40.1 Benign prostatic hyperplasia with lower urinary tract symptoms (principal)
CPT/HCPCS: 81001; 87077; 87086; 87186

== ENCOUNTER → 2025-08-18 | Outpatient (CLI) | payer MEDICARE, MEDICAID, SELFPAY ==
[2025-08-18 08:20] LABS: Collection Type, Urine Clean Catch
[2025-08-18 08:55] LABS: Basophils # (Auto) 0.0 Thou/mm3 (0.0-0.2); Basophils % (Auto) 1 % (0-2.5); Eosinophils # (Auto) 0.2 Thou/mm3 (0.0-0.5); Eosinophils % (Auto) 4 % (0-10); Hematocrit 47.8 % (41.0-53.0); Hemoglobin 15.9 g/dL (13.5-16.0); Immature Granulocytes Auto 0.01 Thou/mm3 (0.00-0.00); Lymphocytes # (Auto) 1.0 Thou/mm3 (1.0-4.8); Lymphocytes % (Auto) 24 % (10-50); Mean Corpuscular HGB Conc 33.3 g/dl (31.0-37.0); Mean Corpuscular Hemoglobin 30.0 pg (25.0-35.0); Mean Corpuscular Volume 90 fL (80-100); Monocytes # (Auto) 0.6 Thou/mm3 (0.0-0.8); Monocytes % (Auto) 14 % (0-12); Neutrophils # (Auto) 2.2 Thou/mm3 (1.8-7.7); Neutrophils % (Auto) 57 % (37-80); Nucleated Red Blood Cell # 0.00 Thou/mm3 (0.00-0.00); Nucleated Red Blood Cell % 0 /100 WBC (0); Platelet Count 153 Thou/mm3 (140-440); RDW Standard Deviation 42.7 fL (35.1-43.9); Red Blood Count 5.30 Miln/mm3 (4.50-5.90); White Blood Count 3.9 Thou/mm3 (3.8-10.6)
[2025-08-18 09:01] LABS: Bilirubin,Urine Negative (Negative); Blood,Urine Negative (Negative); Clarity,Urine Clear (Clear/Hazy); Color,Urine Lt-Yellow (Lt Yel-Yel); Glucose, Urine Negative (Negative); Ketones,Urine Negative (Negative); Leukocyte Esterase,Urine Negative (Negative); Nitrite,Urine Negative (Negative); PH,Urine 7.0 (5.0-7.0); Protein,Urine Negative (Neg - Trace); RBC,Urine 1 /hpf (0-3); Specific Gravity,Urine 1.016 (1.001-1.035); Squamous Epithelial Cell,Urine < 1 /hpf (0-5); Urobilinogen,Urine Negative mg/dL (0.0-1.0); WBC,Urine 2 /hpf (0-5)
[2025-08-18 09:04] LABS: Albumin, Serum 4.5 gm/dL (3.4-4.8); Anion Gap 8 (7-16); BUN/Creatinine Ratio 9 Ratio (12-20); Blood Urea Nitrogen 13 mg/dL (9-23); Calcium 9.5 mg/dL (8.3-10.6); Calcium (Corrected) 9.5 mg/dL (8.5-10.1); Carbon Dioxide 29.2 mMol/L (20.0-31.0); Chloride 106 mMol/L (98-107); Creatinine (Component) 1.4 mg/dL (0.6-1.3); Glucose 100 mg/dL (74-106); Osmolality,Calculated 285 (275-295); Phosphorous 2.8 mg/dL (2.4-5.1); Potassium 5.1 mMol/L (3.4-5.1); Sodium 143 mMol/L (136-145); eGFR 54 See Note
[2025-08-18 09:11] LABS: Vitamin D 25 Hydroxy Total 42.9 ng/mL (7.3-40.2)
[2025-08-18 09:21] LABS: Creatinine,Random Urine 136 mg/dL (30-125); Protein Total, Random Urine 13 mg/dL (1-14)
== END | disposition home or self-care (01) ==
LOC: COPL 07:33
PROVIDERS: PCP Physician Assistant; Referring Provider Internal Medicine; Visit Provider Internal Medicine
DX: I12.9 Hypertensive chronic kidney disease with stage 1 through stage 4 chronic kidney disease, or unspecified chronic kidney disease (principal); N18.31 Chronic kidney disease, stage 3a; N28.1 Cyst of kidney, acquired
CPT/HCPCS: 36415; 80069; 81001; 82306; 82570; 84156; 85025